=== PATIENT | male | born 1980 | race Caucasian/White ===

== ENCOUNTER 2021-02-10 15:08 | Emergency (ER) | payer SELFPAY ==
[2021-02-10 15:16] VITALS: BP 111/89; PULSE 89; RESP 18; TEMP 36.4; O2SAT 98; BMI 42.0
--- NOTE | 2021-02-10 15:37 | CM.ED ---
SOCIAL WORK Received call from Crisis prior to patient's arrival. Assessment completed by Crisis. Patient does not have insurance, Crisis to facilitate placement once medically cleared. Bre Mendiola, PHOTO LAB MANAGER, FINGERPRINT EXPERT
--- NOTE | 2021-02-10 16:01 | EDS_ITS ---
HPI HPI - Psych History of Present Illness Chief Complaint: Mental Health Informant: patient and mental health staff Onset/Context/Timing Onset: Weeks Narrative Narrative: Patient presents secondary to depression and suicidal ideation. He reports a history of depression that is recently been worsening. He has been seeing his counselor regularly. Patient states that the relationship he was in ended 2 weeks ago when he did not see that coming. He reports a 4-day period of not eating during that. He has a pet that was diagnosed with cancer this past summer who has been worsening for the past week. 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 Patient was already seen at counseling center and they do feel patient requires placement. Patient was sent here for medical clearance. He does report thoughts to harm himself but no specific plan or attempt. He denies desire to hurt anyone else. [facility] Medical History (Updated 02/10/21 @ 16:[address] Roopa Hernandez MD) Depression Seasonal allergies Home Medications fluticasone propionate 2 spray NASAL DAILY 12/07/16 [History Last Taken Unknown] montelukast 10 mg PO DAILY 12/07/16 [History Last Taken Unknown] duloxetine 30 mg PO DAILY 02/10/21 [History Last Taken Unknown] epinephrine 0.3 mg IM X1 PRN 02/10/21 [History Last Taken Unknown] hydroxyzine HCl 25 mg PO TID PRN 02/10/21 [History Last Taken Unknown] Allergy/AdvReac Type Severity Reaction Status Date / Time bee venom protein (honey bee) Allergy Anaphylaxis Verified 02/10/21 15:15 guaifenesin [From Robitussin] Allergy Other Verified 02/10/21 15:14 Surgical History (Updated 02/10/21 @ 16:22 by Tari Patel) H/O vasectomy Social History Smoking Status: Never smoker ROS ROS ED Constitutional Constitutional ED: Denies chills or fever(s) Eyes Eyes: Denies change in vision ENT ENT ED: Denies sore throat Cardiovascular Cardiovascular: Denies chest pain Respiratory/Chest Respiratory/Chest: Denies cough or dyspnea Gastrointestinal Gastrointestinal: Reports other Details: Decreased p.o. intake ; Denies a bdominal pain, diarrhea, nausea or vomiting Genitourinary Genitourinary ED: Denies dysuria Musculoskeletal Musculoskeletal: Denies back pain Integumentary Denies rash Neurologic Neurologic: Denies headache(s) or weakness Psychiatric Psychiatric: Reports anxiety, depression and suicidal thoughts Endocrine Endocrinology: Denies polydipsia or polyuria Allergic/Immunologic Allergic/Immunologic ED: Denies urticaria EXAM Physical Exam Const Vital Signs: 02/10/21 15:16 Temperature 97.5 F L Temperature Source Temporal Pulse Rate 89 Respiratory Rate 18 Blood Pressure 111/89 H Blood Pressure Mean 96 Pulse Ox 98 Oxygen Delivery Method Room Air Positive well nourished and well developed General Appearance ED: well developed HEENT Reports normocephalic and head/scalp atraumatic Eyes PERRL and EOMs intact bilaterally Neck supple Chest Wall inspection of chest normal and palpation of chest normal Resp normal respiratory effort and clear to auscultation bilaterally Cardio regular rate and regular rhythm GI normal to inspection, nondistended, normoactive bowel sounds, soft to palpation and non-tender Extremity normal to inspection Neuro oriented x3 and no sensory deficits noted Sensorium / Orientation: alert Motor Exam: strength 5/5 throughout Psych mental status grossly normal and cooperative Appearance: grossly normal and well kempt Attitude: calm Activity / Motor Behavior: avoids eye contact Speech: soft Mood & Affect: depressed Thought Content: suicidality Skin no rashes or lesions noted MDM MDM MDM Narrative Medical decision making narrative: [place] slip was signed. Screening labs for medical clearance is obtained. Lab Data Attestation: I reviewed the patient's lab results. Labs: Laboratory Results - last 24 hr 02/10/21 02/10/21 02/10/21 15:42 15:42 15:42 WBC 6.0 RBC 5.84 Hgb 15.9 Hct 48.9 MCV 83.7 MCH 27.2 MCHC 32.5 RDW Std Deviation 50.5 H RDW Coeff of Branden 16.9 H Plt Count 289 MPV 9.9 Immature Gran % (Auto) 0.300 Neut % (Auto) 56.2 Lymph % (Auto) 28.1 [place] % (Auto) 13.4 H Eos % (Auto) 1.3 Baso % (Auto) 0.7 Absolute Neuts (auto) 3.4 Absolute Lymphs (auto) 1.70 Nucleated RBC % 0 Sodium 139 Potassium 3.7 Chloride 106 Carbon Dioxide 25.0 Anion Gap 8 BUN 15 Creatinine 0.97 Estim Creat Clear Calc 108.90 Est GFR (MDRD) Af Amer 110 Est GFR (MDRD) Non-Af 91 BUN/Creatinine Ratio 15.4 Glucose 122 H Calcium 9.4 Ethyl Alcohol 8.0 Treatment and Re-Evaluation Comments:: Blood work is unremarkable at this time. We are still awaiting urine tox screen. Plan will be transfer to psychiatric facility for treatment. Discharge Plan Triage Chief Complaint: Mental Health ED Provider: Roopa Hernandez Dx/Rx/DC Orders Clinical Impression: Depression, Suicidal ideation Prescriptions: No Action montelukast 10 MG tablet 10 mg PO DAILY RF: 0 fluticasone propionate 1 SPRAY spray,suspension 2 spray NASAL DAILY RF: 0 duloxetine 30 mg capsule,delayed release(DR/EC) 30 mg PO DAILY RF: 0 hydroxyzine HCl 25 mg tablet 25 mg PO TID PRN (Reason: Anxiety) RF: 0 epinephrine 0.3 mg/0.3 mL auto-injector 0.3 mg IM X1 PRN (Reason: Allergic Reaction) RF: 0 Primary Care Provider: Pavan Rivera Referrals: Pavan Rivera MD [Primary Care Provider] - Disposition Disposition: Psychiatric Hospital or Unit
[2021-02-10 16:08] LABS: Absolute Neutrophil Count 3.4 X10^3/uL (2.0-7.7); Basophil# 0.04 X10^3/uL; Basophil% 0.7 % (0-1); Eosinophil# 0.08 X10^3/uL; Eosinophils% 1.3 % (0-5); Hematocrit 48.9 % (40-54); Hemoglobin 15.9 g/dL (13.0-16.5); Lymphocyte % 28.1 % (19-41); Mean Corp Hgb Conc 32.5 g/dL (32-36); Mean Corpuscular Hgb 27.2 pg (27.0-32.0); Mean Corpuscular Volume 83.7 fL (80-94); Mean Platelet Vol. 9.9 fl (6.2-12.0); Monocyte# 0.81 X10^3/uL; Monocyte% 13.4 % (0-10); NRBC Flagged by Analyzer 0 % (0-5); Neutrophil # 3.39 X10^3/uL (2.7-7.7); Neutrophil % 56.2 % (47-70); Platelet Count 289 K/mm3 (150-450); RBC Distribution Width CV 16.9 % (11.6-14.6); RBC Distribution Width SD 50.5 fl (35.1-43.9); Red Blood Count 5.84 M/mm3 (4.6-6.2)
[2021-02-10 16:22] LABS: Anion Gap 8 (5-15); BUN 15 mg/dL (7-18); BUN/Creat Ratio 15.4 RATIO (10-20); Calcium,Total 9.4 mg/dL (8.5-10.1); Chloride 106 mmol/L (98-107); Creatinine, Serum 0.97 mg/dL (0.70-1.30); EST Glomerular Filtration Rate 91 mL/min (>60); Est Glom Filt Rate - Afr Amer 110 mL/min (>60); Glucose 122 mg/dL (74-106); Potassium 3.7 mmol/L (3.5-5.1); Sodium Level 139 mmol/L (136-145)
[2021-02-10 17:02] LABS: Amphetamine Urine VISTA NEGATIVE (<1000 ng/mL); Barbiturate Urine VISTA NEGATIVE (< 200 ng/mL); Benzodiazepine Urine VISTA NEGATIVE (< 200 ng/mL); Cocaine Urine VISTA NEGATIVE (< 300 ng/mL); Ecstacy Urine VISTA NEGATIVE (< 500 ng/mL); Methadone Urine VISTA NEGATIVE (< 300 ng/mL); PCP Urine VISTA NEGATIVE (< 25 ng/mL); THC Urine VISTA NEGATIVE (< 50 ng/mL); Vista UDS pH Range 5
--- NOTE | 2021-02-10 17:12 | CM.ED ---
SOCIAL WORK Medical clearance faxed to Crisis to facilitate placement. Bre Mendiola, RESERVOIR CARETAKER, SHEET METAL ROOFER
[2021-02-10 19:00] VITALS: BP 121/79; PULSE 73; RESP 16; O2SAT 98
[2021-02-10] MEDS: Ondansetron ODT 4 MG Tablet PO (20:46)
== END 2021-02-10 21:45 ==
PROVIDERS: Emergency Medicine; Emergency Provider Emergency Medicine; PCP Family Medicine
DX: F32.9 Major depressive disorder, single episode, unspecified (principal); R45.851 Suicidal ideations; Z79.899 Other long term (current) drug therapy
CPT/HCPCS: 36415; 80048; 80307; 82077; 85025; 87426; 99285

== ENCOUNTER 2021-04-15 00:54 | Emergency (ER) | payer SELFPAY ==
[2021-04-15] VITALS (9 sets, daily range): BP systolic 107–148; BP diastolic 74–86; PULSE 72–103; RESP 14–18; TEMP 37.1; O2SAT 97–99; BMI 36.7
[2021-04-15 01:27] LABS: Absolute Lymphocyte Count 2.15 X10^3/uL (0.83-4.51); Absolute Neutrophil Count 12.6 X10^3/uL (2.0-7.7); Basophil# 0.04 X10^3/uL; Basophil% 0.3 % (0-1); Eosinophil# 0.01 X10^3/uL; Eosinophils% 0.1 % (0-5); Hematocrit 50.3 % (40-54); Hemoglobin 16.4 g/dL (13.0-16.5); Lymphocyte # 2.15 X10^3/ul (0.83-4.51); Lymphocyte % 13.6 % (19-41); Mean Corp Hgb Conc 32.6 g/dL (32-36); Mean Corpuscular Hgb 27.5 pg (27.0-32.0); Mean Corpuscular Volume 84.4 fL (80-94); Mean Platelet Vol. 9.4 fl (6.2-12.0); Monocyte# 0.97 X10^3/uL; Monocyte% 6.1 % (0-10); NRBC Flagged by Analyzer 0 % (0-5); Neutrophil # 12.59 X10^3/uL (2.7-7.7); Neutrophil % 79.5 % (47-70); Platelet Count 323 K/mm3 (150-450); RBC Distribution Width CV 18.2 % (11.6-14.6); RBC Distribution Width SD 53.1 fl (35.1-43.9); Red Blood Count 5.96 M/mm3 (4.6-6.2); White Blood Count 15.8 K/mm3 (4.4-11.0)
--- NOTE | 2021-04-15 01:35 | EX.ED.DYSGE1 ---
HPI <Dr. Kunal Frias MD - Last Filed: 04/15/21 22:22> History of Present Illness Chief Complaint: Suicidal Informant: patient Narrative Narrative: Patient presents with suicidal ideation. He was out in the amin with a gun thinking of shooting himself. He also had drank some alcohol. He states he was pink slipped back in January for worsening depression and grief. He did have some med changes. He has been doing following up counseling a couple times a week. However, he has not yet been able to get a psychiatrist visit. He has been trying but nobody has openings. He has been working to get into intensive outpatient psychiatry here. He has turned in some financial and other information but has not yet heard back. Patient had a break-up with a long-term relationship in January and he states that the biggest issue with grief and depression that is causing problems now. He also had an uncle recently. He was also just refused for Medicaid and he has no insurance. He states he keeps trying and trying but he can get better. He has also had a substantial weight loss. Some of this was from not eating for about 5 days after the break-up. The rest has been a conscious effort. He has been trying to eat healthy and he has been exercising by hiking every day. He has been doing everything he can to get better. Things just really caught up with him again today. [facility] <Dr. Kunal Frias MD - Last Filed: 04/15/21 22:22> [facility] Medical History Depression Seasonal allergies Home Medications fluticasone propionate 2 spray NASAL DAILY 12/07/16 [History Last Taken Unknown] montelukast 10 mg PO DAILY 12/07/16 [History Last Taken Unknown] duloxetine 60 mg PO DAILY 02/10/21 [History Last Taken Unknown] epinephrine 0.3 mg IM X1 PRN 02/10/21 [History Last Taken Unknown] hydroxyzine HCl 25 mg PO TID PRN 02/10/21 [History Last Taken Unknown] buspirone 5 mg PO BID 04/15/21 [History Last Taken Unknown] Allergy/AdvReac Type Severity Reaction Status Date / Time bee venom protein (honey bee) Allergy Anaphylaxis Verified 02/10/21 15:15 guaifenesin [From Robitussin] Allergy Other Verified 02/10/21 15:14 Surgical History H/O vasectomy Social History Smoking Status: Never smoker ROS <Dr. Kunal Frias MD - Last Filed: 04/15/21 22:22> ROS ED Constitutional Constitutional ED: Denies fever(s) Eyes Eyes: Denies blurry vision or change in vision ENT ENT ED: Denies rhinorrhea Cardiovascular Cardiovascular: Denies chest pain or palpitations Respiratory/Chest Respiratory/Chest: Denies cough or dyspnea Gastrointestinal Gastrointestinal: Denies abdominal pain, nausea or vomiting Genitourinary Genitourinary ED: Denies dysuria Musculoskeletal Musculoskeletal: Denies myalgias Integumentary Denies rash Neurologic Neurologic: Denies headache(s), paresthesias or weakness Psychiatric Psychiatric: Reports depression, suicidal ideation and suicidal thoughts Endocrine Endocrinology: Denies polydipsia or polyuria Allergic/Immunologic Allergic/Immunologic ED: Denies urticaria EXAM <Dr. Kunal Frias MD - Last Filed: 04/15/21 22:22> Physical Exam Const Vital Signs: 04/15/21 00:54 04/15/21 03:13 04/15/21 04:26 Temperature 98.7 F Temperature Source Temporal Pulse Rate 103 H 72 Respiratory Rate 18 16 16 Blood Pressure 137/81 H 107/78 Blood Pressure Mean 99 87 Pulse Ox 99 98 Oxygen Delivery Method Room Air Room Air 04/15/21 05:35 04/15/21 06:03 04/15/21 07:24 Temperature Temperature Source Pulse Rate 77 Respiratory Rate 14 16 18 Blood Pressure 123/74 H Blood Pressure Mean 90 Pulse Ox 98 Oxygen Delivery Method Room Air 04/15/21 08:44 04/15/21 11:19 04/15/21 12:19 Temperature Temperature Source Pulse Rate 81 87 Respiratory Rate 16 16 18 Blood Pressure 148/86 H Blood Pressure Mean 106 Pulse Ox 98 97 Oxygen Delivery Method Room Air Patient is cooperative. He is a bit tearful. Positive well nourished and well developed General Appearance ED: well developed HEENT Reports moist mucous membranes Eyes General Eye ED: Negative for pale conjunctiva or scleral icterus Neck no JVD Chest Wall inspection of chest normal Resp normal respiratory effort and clear to auscultation bilaterally Cardio regular rate and regular rhythm GI normal to inspection, nondistended, normoactive bowel sounds and non-tender Palpation: soft Back/Spine no CVA tenderness Extremity normal to inspection Neuro oriented x3 Sensorium / Orientation: alert Psych Attitude: No agitated Mood & Affect: depressed and tearful Skin no rashes or lesions noted <Joseph Chirinos MD - Last Filed: 04/15/21 10:30> Physical Exam Const Vital Signs: 04/15/21 00:54 04/15/21 03:13 04/15/21 04:26 Temperature 98.7 F Temperature Source Temporal Pulse Rate 103 H 72 Respiratory Rate 18 16 16 Blood Pressure 137/81 H 107/78 Blood Pressure Mean 99 87 Pulse Ox 99 98 Oxygen Delivery Method Room Air Room Air 04/15/21 05:35 04/15/21 06:03 04/15/21 07:24 Temperature Temperature Source Pulse Rate 77 Respiratory Rate 14 16 18 Blood Pressure 123/74 H Blood Pressure Mean 90 Pulse Ox 98 Oxygen Delivery Method Room Air 04/15/21 08:44 04/15/21 11:19 04/15/21 12:19 Temperature Temperature Source Pulse Rate 81 87 Respiratory Rate 16 16 18 Blood Pressure 148/86 H Blood Pressure Mean 106 Pulse Ox 98 97 Oxygen Delivery Method Room Air [facility] <Dr. Kunal Frias MD - Last Filed: 04/15/21 22:22> [facility] Lab Data Labs: Laboratory Results - last 24 hr 04/15/21 04/15/21 04/15/21 01:15 01:15 01:15 WBC 15.8 H RBC 5.96 Hgb 16.4 Hct 50.3 MCV 84.4 MCH 27.5 MCHC 32.6 RDW Std Deviation 53.1 H RDW Coeff of Branden 18.2 H Plt Count 323 MPV 9.4 Immature Gran % (Auto) 0.400 Neut % (Auto) 79.5 H Lymph % (Auto) 13.6 L [place] % (Auto) 6.1 Eos % (Auto) 0.1 Baso % (Auto) 0.3 Absolute Neuts (auto) 12.6 H Absolute Lymphs (auto) 2.15 Nucleated RBC % 0 Sodium 138 Potassium 3.8 Chloride 104 Carbon Dioxide 26.0 Anion Gap 8 BUN 8 Creatinine 0.94 Estim Creat Clear Calc 114.66 Est GFR (MDRD) Af Amer 114 Est GFR (MDRD) Non-Af 94 BUN/Creatinine Ratio 8.5 L Glucose 113 H Calcium 9.2 Urine Opiates Screen Urine Methadone Screen Ur Barbiturates Screen Ur Phencyclidine Scrn Ur Amphetamines Screen U Methamphetamin-MDMA U Benzodiazepines Scrn Urine Cocaine Screen U Cannabinoids Screen Ur Drug Screen Comment Ethyl Alcohol < 3.0 04/15/21 01:43 WBC RBC Hgb Hct MCV MCH MCHC RDW Std Deviation RDW Coeff of Branden Plt Count MPV Immature Gran % (Auto) Neut % (Auto) Lymph % (Auto) [place] % (Auto) Eos % (Auto) Baso % (Auto) Absolute Neuts (auto) Absolute Lymphs (auto) Nucleated RBC % Sodium Potassium Chloride Carbon Dioxide Anion Gap BUN Creatinine Estim Creat Clear Calc Est GFR (MDRD) Af Amer Est GFR (MDRD) Non-Af BUN/Creatinine Ratio Glucose Calcium Urine Opiates Screen NEGATIVE Urine Methadone Screen NEGATIVE Ur Barbiturates Screen NEGATIVE Ur Phencyclidine Scrn NEGATIVE Ur Amphetamines Screen NEGATIVE U Methamphetamin-MDMA NEGATIVE U Benzodiazepines Scrn NEGATIVE Urine Cocaine Screen NEGATIVE U Cannabinoids Screen NEGATIVE Ur Drug Screen Comment Ethyl Alcohol <Joseph Chirinos MD - Last Filed: 04/15/21 10:30> MDM MDM Narrative Medical decision making narrative: Patient endorsed to me by Dr. Kunal Frias to ensure transfer this patient to a psychiatric facility. I reviewed his medical screening labs and they are negative. I was informed by the RN, that he still had a headache and had received Tylenol. He will be given ibuprofen 400 mg orally here. Additionally, they state that he has been accepted at [facility]. He will be transferred in stable condition. Lab Data Attestation: I reviewed the patient's lab results. Labs: Laboratory Results - last 24 hr 04/15/21 04/15/21 04/15/21 01:15 01:15 01:15 WBC 15.8 H RBC 5.96 Hgb 16.4 Hct 50.3 MCV 84.4 MCH 27.5 MCHC 32.6 RDW Std Deviation 53.1 H RDW Coeff of Branden 18.2 H Plt Count 323 MPV 9.4 Immature Gran % (Auto) 0.400 Neut % (Auto) 79.5 H Lymph % (Auto) 13.6 L [place] % (Auto) 6.1 Eos % (Auto) 0.1 Baso % (Auto) 0.3 Absolute Neuts (auto) 12.6 H Absolute Lymphs (auto) 2.15 Nucleated RBC % 0 Sodium 138 Potassium 3.8 Chloride 104 Carbon Dioxide 26.0 Anion Gap 8 BUN 8 Creatinine 0.94 Estim Creat Clear Calc 114.66 Est GFR (MDRD) Af Amer 114 Est GFR (MDRD) Non-Af 94 BUN/Creatinine Ratio 8.5 L Glucose 113 H Calcium 9.2 Urine Opiates Screen Urine Methadone Screen Ur Barbiturates Screen Ur Phencyclidine Scrn Ur Amphetamines Screen U Methamphetamin-MDMA U Benzodiazepines Scrn Urine Cocaine Screen U Cannabinoids Screen Ur Drug Screen Comment Ethyl Alcohol < 3.0 04/15/21 01:43 WBC RBC Hgb Hct MCV MCH MCHC RDW Std Deviation RDW Coeff of Branden Plt Count MPV Immature Gran % (Auto) Neut % (Auto) Lymph % (Auto) [place] % (Auto) Eos % (Auto) Baso % (Auto) Absolute Neuts (auto) Absolute Lymphs (auto) Nucleated RBC % Sodium Potassium Chloride Carbon Dioxide Anion Gap BUN Creatinine Estim Creat Clear Calc Est GFR (MDRD) Af Amer Est GFR (MDRD) Non-Af BUN/Creatinine Ratio Glucose Calcium Urine Opiates Screen NEGATIVE Urine Methadone Screen NEGATIVE Ur Barbiturates Screen NEGATIVE Ur Phencyclidine Scrn NEGATIVE Ur Amphetamines Screen NEGATIVE U Methamphetamin-MDMA NEGATIVE U Benzodiazepines Scrn NEGATIVE Urine Cocaine Screen NEGATIVE U Cannabinoids Screen NEGATIVE Ur Drug Screen Comment Ethyl Alcohol Discharge Plan Triage Chief Complaint: Suicidal ED Provider: Joseph Chirinos Dx/Rx/DC Orders Clinical Impression: Suicidal ideation Prescriptions: No Action montelukast 10 MG tablet 10 mg PO DAILY RF: 0 fluticasone propionate 1 SPRAY spray,suspension 2 spray NASAL DAILY RF: 0 duloxetine 30 mg capsule,delayed release(DR/EC) 60 mg PO DAILY RF: 0 hydroxyzine HCl 25 mg tablet 25 mg PO TID PRN (Reason: Anxiety) RF: 0 epinephrine 0.3 mg/0.3 mL auto-injector 0.3 mg IM X1 PRN (Reason: Allergic Reaction) RF: 0 buspirone 5 mg Tablet 5 mg PO BID RF: 0 Primary Care Provider: Pavan Rivera Referrals: Pavan Rivera MD [Primary Care Provider] - Disposition Disposition: Psychiatric Hospital or Unit Discharge Location: [facility] Discharge Date/Time: 04/15/21 12:49
[2021-04-15 01:40] LABS: Alcohol, Blood (Medical)-Serum < 3.0 mg/dL
[2021-04-15 01:43] LABS: Anion Gap 8 (5-15); BUN 8 mg/dL (7-18); BUN/Creat Ratio 8.5 RATIO (10-20); Calcium,Total 9.2 mg/dL (8.5-10.1); Chloride 104 mmol/L (98-107); Creatinine, Serum 0.94 mg/dL (0.70-1.30); EST Glomerular Filtration Rate 94 mL/min (>60); Est Glom Filt Rate - Afr Amer 114 mL/min (>60); Estimated Creatinine Clearance 114.66 ml/min; Glucose 113 mg/dL (74-106); Potassium 3.8 mmol/L (3.5-5.1); Sodium Level 138 mmol/L (136-145)
[2021-04-15 02:16] LABS: Amphetamine Urine VISTA NEGATIVE (<1000 ng/mL); Barbiturate Urine VISTA NEGATIVE (< 200 ng/mL); Benzodiazepine Urine VISTA NEGATIVE (< 200 ng/mL); Cocaine Urine VISTA NEGATIVE (< 300 ng/mL); Ecstacy Urine VISTA NEGATIVE (< 500 ng/mL); Methadone Urine VISTA NEGATIVE (< 300 ng/mL); PCP Urine VISTA NEGATIVE (< 25 ng/mL); THC Urine VISTA NEGATIVE (< 50 ng/mL); Vista UDS pH Range 5
[2021-04-15] MEDS: Acetaminophen 500 MG Tablet 1000 MG PO (04:24)
--- NOTE | 2021-04-15 05:33 | ED.RN ---
CRISIS CALLED AND SAID THAT SINCE THE PATIENT HAS NO INSURANCE IT WOULD BE AWHILE TO GET PLACED.
[2021-04-15] MEDS: DULoxetine Hcl 60 MG Capsule PO (09:08)
[2021-04-15] MEDS: busPIRone 5 MG Tablet PO (09:08)
[2021-04-15] MEDS: Montelukast 10 MG Tablet PO (09:08)
--- NOTE | 2021-04-15 09:26 | NURSING ---
CALLED CRISIS. TALKED TO GARY AND MARCELLO. THEY ARE FAXING CHART TO [facility]. THE BUSINESS DEPT WILL HAVE TO APPROVE THE TRANSFER
--- NOTE | 2021-04-15 10:10 | CM.ED ---
Spoke to Elise with Crisis. Per Elise, referral has been faxed to [facility] for single case agreement as patient does not have insurance. Elise reports [facility] to review and get back regarding acceptance/denial. Bre Mendiola, BOOKBINDER CHIEF, DINKEY ENGINE OPERATOR
--- NOTE | 2021-04-15 10:23 | EKG12_ITS ---
Test Reason : MENTAL CLEARANCE Blood Pressure : / mmHG Vent. Rate : 083 BPM Atrial Rate : 083 BPM P-R Int : 138 ms QRS Dur : 092 ms QT Int : 372 ms P-R-T Axes : 023 -14 016 degrees QTc Int : 437 ms Normal sinus rhythm Normal ECG Confirmed by AJSON THOMAS, EMILY ([id number]), offline editor ERICK LIEBERMAN ([id number]) on 04/22/2021 8:59:28 AM Referred By: RYDER Confirmed By:EMILY GOMEZ MD
--- NOTE | 2021-04-15 10:23 | NURSING ---
NO OLD EKGS
--- NOTE | 2021-04-15 10:23 | NURSING ---
PATIENT ACCEPTED AT [facility]. CRISIS WILL HAVE TO CALL FOR A SQUAD
--- NOTE | 2021-04-15 10:25 | NURSING ---
GARY, CRISIS, CALLED. [facility] WILL BE 2 TO 3 HRS
[2021-04-15] MEDS: Ibuprofen 200 MG Tablet 400 MG PO (10:41)
--- NOTE | 2021-04-15 10:45 | CM.ED ---
Patient has been accepted to [facility] by Dr. Pena. Crisis to set up transport. [place] Slip added to chart. EKG faxed to [facility] per request. Bre Mendiola, COLLECT ON DELIVERY CLERK, PIG FURNACE OPERATOR
--- NOTE | 2021-04-15 12:42 | ED.RN ---
patients belongings including cell phone and public health program manager have been given to medics with [facility].
[2021-04-15] MEDS: Ondansetron ODT 4 MG Tablet PO (12:45)
== END 2021-04-15 12:49 ==
PROVIDERS: Emergency Medicine; Emergency Provider Emergency Medicine; PCP Family Medicine
DX: R45.851 Suicidal ideations (principal); R51.9 Headache, unspecified; F32.A Depression, unspecified; Z79.899 Other long term (current) drug therapy
CPT/HCPCS: 80048; 80307; 82077; 85025; 87426; 93005; 99285

== ENCOUNTER 2021-05-01 09:00 | Outpatient (RCR) | payer SELFPAY ==
--- NOTE | 2021-05-01 10:08 | BH.SGPN.GN ---
Behaviors/Verbalizations/Mental Status: Client alert and oriented, casually dressed and groomed. Eye contact good. Motor activity appropriate. Speech within normal limits, quiet. Affect constricted, mood depressed, anxious. Thoughts linear, logical, no signs of hallucinations or delusions.[] Client Response/Progress/Benefit: []Client first day in IOP tx. He did well to remain engaged during session AEB client taking notes and nodding during discussion and completing worksheet. Connected with discussion on crisis and how coping with external crises by using unhealthy coping skills could result in a personal crisis. Group reflected on the importance of having awareness of personal warning signs in order to prevent reaching crisis point. Group identified potential warning signs for crisis and client completed the personal warning signs worksheet. Client identified personal crisis warning signs to include: crying more or being more emotional, loss of appetite, and uncontrollable worries. Client benefited by increasing awareness of what leads to crisis and personal warning signs. Client will continue IOP to continue to increase insight into warning signs and triggers, develop healthy emotion regulation skills, as well as prevent decompensation. Narrative Note: []
--- NOTE | 2021-05-01 11:10 | BH.SGPN.GN ---
Behaviors/Verbalizations/Mental Status: []Client alert and oriented, casually dressed and groomed. Eye contact good. Motor activity appropriate. Speech within normal limits. Affect constricted, mood dysthymic. Thoughts linear, logical, no signs of hallucinations or delusions. Client Response/Progress/Benefit: []Client responded well to session as evidenced by client listening attentively to others and providing strategies during small group discussion. Client identified warning signs for crisis and gained further awareness of earliest warning signs. Client created a crisis action plan to help client better manage warning signs for crisis. Client?s action plan for crying more frequently and feeling more emotional included: opposite action through comedy, writing down what makes him happy, and avoiding what makes it worse. Client appeared to benefit from creating a crisis action plan and increasing self-awareness. Client?s first day of IOP tx. Client to continue IOP tx to prevent decompensation, maintain safety, and gain emotional regulation skills. Narrative Note: []
--- NOTE | 2021-05-01 13:58 | BH.COMM_ITS ---
Communication Note - Communication with Client Communication Note: Met with patient to complete initial paperwork. No sig nificant changes since pre-admission screening. Completed [place] Suicide Screening. Moderate risk. Last suicidal thought was 2 weeks ago at which time pt had an interrupted attempt. Reports at he had gone into the amin with a plan to complete suicide via firearm and had texted a picture of the gun to his ex. Pt's ex then contacted authorities and pt was escorted to the ER by police. Pt was hospitalized for one week for psychiatric stabilization. Denies any active SI, plan, or intent since. History of one previous hospitalization approximately 4 weeks earlier due to increased SI, without a specific plan or intent. Reports he no longer has access to any firearms or other lethal means. Reports ability to maintain safety and willing to review safety plan. Pt is future oriented and able to identify several motivations for living. Case discussed with Dr. French with plan to admit to IOP level of care with dx of MDD F33.2
--- NOTE | 2021-05-04 09:07 | BH.SGPN.GN ---
Behaviors/Verbalizations/Mental Status: []Client alert and oriented, casually dressed and groomed. Eye contact fair to good. Motor activity appropriate. Speech within normal limits, soft. Affect congruent, mood depressed and agitated. Thoughts linear, logical, no signs of hallucinations or delusions. Reviewed client?s symptom tracker, suicidal ideation reported as 1/5 which is within baseline, denies risk, plan, or intent as of 05/04/21 Client Response/Progress/Benefit: []Client responded well to session, attentive throughout and willing to process with group. Client reports feeling irritated? today as he had gone to visit a friend over the weekend and ended up having a disagreement with them. Shared it was ultimately a misunderstanding but that he is irritated he did not step back and listen to his friends concerns before getting defensive. Noted beliefs the conflict could have potentially been avoided. Went on to discuss believing this would have been an avoidable argument had be been more open to communicating. Shared feeling he has learned a little from group already and finds the treatment environment to be supportive. Appeared to benefit from group support and discussing skills client can use. Will continue IOP tx to continue to promote healthy coping skills, improve emotion regulation, and prevent decompensation. Narrative Note: []
--- NOTE | 2021-05-04 10:15 | BH.SGPN.GN ---
Behaviors/Verbalizations/Mental Status: []Client alert and oriented, neatly dressed and groomed. Eye contact fair. Motor activity appropriate. Speech within normal limits. Affect constricted, mood dysthymic. Thoughts linear, logical, no signs of hallucinations or delusions. Client Response/Progress/Benefit: []Client passive participate AEB no contributions during discussion, however appeared to listen attentively to peers. Listened to discussion of things that can keep people feeling trapped or stuck in life including: avoidance, decreased confidence, give up easily and not try. Group discussed the connection between thoughts, emotions, and behaviors as well as how negative thinking can keep a person stuck. Client attentive during psychoeducation on maintenance cycles. Client able to identify negative thoughts that have kept client stuck. Appeared to benefit from gaining awareness of how negative thoughts reinforce mental health symptoms and keep people stuck. Will continue IOP tx to continue challenging negative thoughts, use healthy coping skills and prevent decompensation.
--- NOTE | 2021-05-04 11:15 | BH.SGPN.GN ---
Behaviors/Verbalizations/Mental Status: []Client alert and oriented, neatly dressed and groomed. Eye contact good. Motor activity appropriate. Speech within normal limits. Affect flat, mood depressed. Thoughts linear, logical, no signs of hallucinations or delusions. Client Response/Progress/Benefit: []Client engaged during activity and discussion. Client worked in small group to apply skills learned to reframe own personal fixed thoughts. Appeared to benefit from suggestions provided by peers and from providing ideas to peers in return. Client identified several fixed thoughts including ?I?m going to remain in this anxious and stuck state? and ?I?m never going to meet anyone again as good as my ex-boyfriend.? Client practiced reframing these fixed thoughts using growth-mindset strategies. Reframed one of his thoughts and shared ?if I focus on rebuilding myself, I can find a better partner.? Benefitted from discussing benefits of growth mindset and brainstorming strategies for prompting growth-mindset. Will continue IOP tx to prevent decompensation, improve overall functioning, and maintain safety. Narrative Note: []
--- NOTE | 2021-05-06 10:23 | BH.MDN ---
Multi-Disciplinary Note - Note 60-min Individual Time Started:: 09:10 Date: 05/06/21 Purpose of session/treatment goals addressed:: Reviewed progress and current symptoms. Treatment Planning. Eye Contact:: Good Motor Activity:: Appropriate Appearance:: Casual Speech:: Appropriate Mood:: Depressed Affect:: Flat Thoughts:: Linear, Logical, No evidence of hallucinations/delusions noted Staff Interventions:: psychoeducation on: - mistaken beliefs, CBT techniques, rapport building, treatment planning Client Response:: Pt reports that last he has been depressed since last night which led to feeling like he is regressing. This led to thoughts that he will end up back in the hospital and will always be depressed. Processed events and thoughts from yesterday and this AM. Had some obstacles over the night which included having yoga cancelled and ending a relationship with someone he has been communicating with via a dating amita. Reports that he is very lonely and while he has insight that entering a relationship is not ideal at this time he reached out to have someone to talk with and decrease loneliness. Yesterday this person essentially ended the communication with patient reporting that he was already in a relationship. This brought back emotions and triggered him to ruminate of his previous relationship which ended in January and is primarily reason for his depression and SI. 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 Feels lack of control in his life. Responded well to some thought reframing. 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 Risks/Concerns:: Pt has reported frequent suicidal thoughts since his relationship ended in January. These thoughts have led to plan and intent which led to psychiatric admission several weeks ago. He reports decreased frequency, intensity, and duration of these thoughts since discharge from psychiatric unit. He admits to passive thoughts of last night while alone and presented with emotional trigger however was able to utilize some calming and coping skills. Denies active suicidal ideations, plan, or intent. Future-oriented regarding IOP and his business. Does not present as imminent danger to self due to no active SI, plan, or intent. Future-oriented. Reports able to maintain safety. Progress Toward Goals/Plan:: Pt reported progress since discharge and starting IOP. He reported on 12/13/21 improved mood and benefit from support and education in groups. Regression last evening in response to a trigger. Able to process thoughts last night and identify strategies that he could use for future depressive episodes. His primary coping skill is distraction and would benefit from learning more internal skills. Primarily struggles when alone with my thoughts so we have identified this as important area to address. Medication compliant. Consistent with attendance and appears motivated to improve overall mental wellness. Admits that he is struggling to move on from his previous relationship often stating that he was the love of my life. Will continue in IOP to maintain safety, increase healthy coping, and prevent decompensation. He was given some educational material on Mistake Beliefs and plan is to move forward with thought tracking. Time Stopped:: 10:10
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
[2021-05-06 11:53] VITALS: BP 152/98; PULSE 73
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
--- NOTE | 2021-05-06 12:31 | BH.DR.ITP ---
Initial Treatment Plan Patient Information Visit Information: ADMISSION DATE: EXPECTED LOS: 4-6 weeks Problems/Symptoms Problem #1:: Depression Symptom:: Sadness, biological disruption of appetite, recent history of suicidal ideation, fatigue, low energy, anhedonia Problem #2:: Anxiety Symptom:: Worry, rumination, flashbacks, reexperiencing, avoidance
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
--- NOTE | 2021-05-06 14:22 | BH.MTP ---
Master Treatment Plan - Patient Information Program Physician:: Lore French Primary Therapist:: Patricio Garces - Psychiatric Diagnoses Psychiatric Diagnoses:: 1. Major depressive disorder, recurrent, severe without psychosis. 2. Generalized anxiety disorder Diagnosis Code(s):: F33.2, F41.1 - Estimated LOS Estimated LOS (in weeks):: 8 Problem/Goal #1 - Problem/Goal #1 Stated Goal:: Client will reduce depressive symptoms, worthlessness, lack of concentration, suicidal ideations, and negative core beliefs associated with major depressive disorder AEB self-report and decrease in depression domain on DSM5 outcomes Description of Barriers: Grief, recent break-up, co-dependency issues, financial stressors, career stressors, Functional Impact: Depression and SI have led to two psychiatric admissions since January 2021 - Objectives Objective #1 Stated Objective: Create a safety plan for suicidal ideations. Interventions: Through individual and group counseling with work with pt to develop a plan, identifying what he/she will and won?t do when experiencing suicidal thoughts or impulses; encourage the client to be open and honest regarding suicidal urges, Discharge Criteria: Will have completed safety plan Target Date: 06/12/21 Review Date: 06/03/21 Objective #2 Stated Objective: Client will identify and replace 2-3 negative thinking patterns that reinforce depressive symptoms, self-hate, and negative self-talk. Interventions: Through individual and group counseling will help client identify distorted, negative beliefs about self and replace with more realistic, affirmative messages. Therapist will use CBT to help client increase insight to the connection between thoughts, emotions, and behaviors. Therapist will encourage client to practice thought challenging. Discharge Criteria: Will be able to identify 2-3 negative thinking patterns and cognitive distortions that impacts thoughts, emotions, and behaviors and be able ti implement strategies to decrease their impact on mental health. Target Date: 06/12/21 Review Date: 06/03/21 Problem/Goal #2 - Problem/Goal #2 Stated Goal:: Client will reduce overall frequency, intensity, and duration of anxiety to improve functioning AEB reduction in scorce on the Anxiety domain of the DSM-5 cross-cutting outcome scales. Description of Barriers: Grief, recent break-up, co-dependency issues, financial stressors, career stressors, Functional Impact: Anxiety about the future or his business, career, and finances have impacted daily functioning (less hours at work, isolation) - Objectives Objective #1 Stated Objective: Client will identify 2-3 anxiety triggers and 2 calming coping skills to reduce anxiety as shown by decreased DSM-5 cross cutting symptom measure scores. Interventions: Through individual and group counseling will help client increase awareness of anxiety triggers and educate client on the ways anxiety impacts overall health. Therapist will teach client various calming and mindfulness strategies to promote emotional regulation and reduction of anxiety. Therapist will encourage client to implement healthy coping skills on a regular basis. Discharge Criteria: Identify anxiety triggers and utilize skills on a consistent basis. Target Date: 06/12/21 Review Date: 06/03/21
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
--- NOTE | 2021-05-08 10:10 | BH.SGPN.GN ---
Behaviors/Verbalizations/Mental Status: []Eye contact is good. Motor activity is appropriate. Appearance is casual. Speech is Appropriate. Mood is dysthymic. Affect is constricted. Thoughts are linear and logical. No evidence of psychosis. Client Response/Progress/Benefit: []Pt was a passive participant in group discussion. Pt was taking notes and providing input when elicited by therapist. Attentive during psychoeducation reviewing internal and external obstacles and provided examples throughout. Participated in the reflection activity in which clients tucker pictures depicting their current and desired reality and shared with the group. Pt stated feels like he is stuck on an island with all his triggers with no way of leaving. Stated makes him feel pessimistic and hopeless. Reported desired reality is to be able to manage triggers better, increase socialization, and feel like himself again. Benefited from group by increasing current awareness and expectations for progress. Pt to continue IOP to improve emotion regulation, increase confidence and prevent decompensation.
--- NOTE | 2021-05-08 11:10 | BH.SGPN.GN ---
Behaviors/Verbalizations/Mental Status: [] Client alert and oriented, casually dressed and groomed. Eye contact good. Motor activity appropriate. Speech within normal limits. Affect constricted, mood anxious and depressed. Thoughts linear, logical, no signs of hallucinations or delusions. Client Response/Progress/Benefit: [] Client mostly engaged during activity, though often remains passive throughout group discussion. Attentive as group came up with ideas on how to cope with internal barriers that keep clients stuck from moving towards goals. Client able to identify personal barriers to their desired reality, which included: isolating, fear of failure, self-doubt, and negative self-talk. Client wants to work on reducing self-doubt by reminding himself to be kind/patient with himself, as well as highlighting small wins. Reports this will aid in further improving ability to love himself as well. Benefited from group by identifying personal obstacles and potential solutions to desired reality. Client will continue IOP tx to reduce depressive symptoms, improve overall functioning, and decrease negative thinking. Narrative Note: []
--- NOTE | 2021-05-11 09:05 | BH.SGPN.GN ---
Behaviors/Verbalizations/Mental Status: [] Eye contact is good. Motor activity is appropriate. Appearance is casual. Speech is Appropriate. Mood is depressed. Affect is flat. Thoughts are linear and logical. No evidence of psychosis. Reviewed daily check in sheet and pt reports 1/5 for suicidal thoughts and 0/5 for intent. Client Response/Progress/Benefit: [] Pt participated when prompted. Attentive. Mental health win was visiting with support over the weekend. Also reports that he went on a 3 mile walk with a friend. I'm trying to get into a healthy routine. He talked at length regarding the struggles with anxiety and crying spells that he had driving to and from support this weekend. Worried that he will drive past his ex which will result in an emotional crisis. He utilized several coping skills during his drive and was able to make it however states he almost turned around several times. He asked for and received feedback from peers on how to manage panic and anxiety. Minimal progress noted per pt report. Difficulty seeing progress as he believes that these crying spells and panic are failures. Group helped him reframe which was beneficial. Will continue in IOP to maintain safety, prevent decompensation, and improve functioning. Narrative Note: []
--- NOTE | 2021-05-11 10:10 | BH.SGPN.GN ---
Behaviors/Verbalizations/Mental Status: []Client alert and oriented, casually dressed and groomed. Eye contact fair. Motor activity appropriate. Speech within normal limits. Affect constricted, mood dysthymic. Thoughts linear, logical, no signs of hallucinations or delusions. Client Response/Progress/Benefit: []Client was an engaged participant AEB contributing to discussion and staying engaged with group activity. Connected with the topic of pitfalls and helped the group discuss barriers that keep them from choosing a healthier path to mental wellness such as pitfalls. Group worked together to identify examples of personal pitfalls which included: lashing out, jumping to conclusions, social media, isolation and addictive behaviors. Client shared personal pitfalls as: no patience, unrealistic expectations, personalizing, and comparing self to former self. Engaged during the activity by offering group members encouragement and problem solving techniques. Client benefited from group as learned personal barriers from improving mental health. Client will continue IOP to increase the use of healthy coping skills, improve confidence, and prevent decompensation.
--- NOTE | 2021-05-11 11:10 | BH.SGPN.GN ---
Behaviors/Verbalizations/Mental Status: []Client alert and oriented, neatly dressed and groomed. Eye contact fair. Motor activity appropriate. Speech within normal limits. Affect flat, mood depressed. Thoughts linear, logical, no signs of hallucinations or delusions. Client Response/Progress/Benefit: []Client engaged throughout AEB client actively listening, taking notes, and at times contributing to discussion. Client completed worksheet identifying personal pitfalls impacting mental health progress. Client identified the following pitfalls: lack of patience, unrealistic expectations, personalizing, and comparing himself to ?my former self.? Group brainstormed different coping skills to help manage pitfalls. Client selected personalizing as the pitfall client would like to overcome. Client plans to work on this by using positive self-talk and challenging distorted thought patterns. Benefited from identifying personal pitfalls and strategies to overcome these pitfalls. Will continue IOP tx to reduce ruminations, improve daily functioning, and increase mood stability. Narrative Note: []
--- NOTE | 2021-05-11 13:50 | BH.MDN ---
Multi-Disciplinary Note - Note 60-min Individual Time Started:: 12:00 Date: 05/11/21 Purpose of session/treatment goals addressed:: Reviewed current symptoms and progress in IOP. Reviewed homework. Eye Contact:: Good Motor Activity:: Appropriate Appearance:: Casual Speech:: Soft Mood:: Depressed Affect:: Flat Thoughts:: Linear, Logical, No evidence of hallucinations/delusions noted Staff Interventions:: thought challenging, psychoeducation on: - mistaken beliefs, strengths perspective, completed risk assessment / safety planning - reviewed safety plan for his recent psych admission. Client Response:: Pt reports that he had some downs over the weekend. Reports that he utilized sleep as an unhealthy coping skill on Tuesday going to be at 730pm to escape. Tuesday he was depressed and had crying spells with thoughts like I don't want to be sick.. Why did I lose Behzad. Tuesday he drove to meet with his parents which was not the best visit as he was disengaged. He read the handout from last week on cognitive distortions and he identified that he utilized personalization and shoulds most often. Also able to identify absolute thinking. Despite his perspective that he was significantly depressed he did manage to overcome anxiety, panic attacks, and continues to utilize hiking as a healthy skill. Went hiking with a friend. He reports that he was anxious driving to parents however utilized skills and worked through emotions to complete task rather than avoid. He is also beginning to challenge and reframe some thoughts from skills learned. We reviewed his mistaken beliefs questionnaire which he reports was insightful and shed light on why this break-up is challenging. Risks/Concerns:: Pt reported a 1/5 for suicidal ideations and 0/5 for intent on his daily tracker. He denies active SI, plan, or intent. We reviewed his safety plan from psych inpatient and he reports being future-oriented and looking forward to this afternoon as he has plans with a friend. Does not present as imminent danger to self due to no active SI, plan, or intent. Contracts for safety. Progress Toward Goals/Plan:: Progress noted. Consistently attending IOP. Engaged and attentive in the program. Takes notes and discusses groups in individual sessions. Utilizing skills at times. Primary obstacle is rumination and grief associated with break-up. When alone he struggles to combat negative thoughts. This is improving with education on connection with thoughts, emotions, and behaviors as well as cognitive distortions. Was given homework to track thoughts and identify when he has cognitive distortions. 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 We briefly discussed options. As this is a significant stressors and time sensitive we agreed to focus on decision-making skills in the next week. He was given task to write down all his current career options. Plan is to continue in IOP to maintain safety, increase healthy coping, and stabilize mood. Time Stopped:: 01:00
--- NOTE | 2021-05-13 09:00 | BH.SGPN.GN ---
Behaviors/Verbalizations/Mental Status: [] Eye contact is good. Motor activity is appropriate. Appearance is casual. Speech is Appropriate. Mood is anxious. Affect is congruent. Thoughts are linear and logical. No evidence of psychosis. Reviewed daily check in sheet and denies any suicidal thoughts or intent. Client Response/Progress/Benefit: [] Pt participated when prompted. Attentive. Daily symptom tracker notes 5 for depression and 2/5 for anxiety. 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 Business has been a significant stressor so this was very beneficial for him. Pt states Yesterday was the close to feeling normal again. Reports that he wakes up anxious and is attempting to reframe thoughts and utilize mindfulness and breathing to lower anxiety which has helped him start his day in better spirits. Progress noted. Benefited from group support, encouragement, and feedback. Will continue in IOP to maintain safety, prevent decompensation, and increase healthy coping. Narrative Note: []
--- NOTE | 2021-05-13 10:07 | BH.SGPN.GN ---
Behaviors/Verbalizations/Mental Status: []Eye contact is good. Motor activity is appropriate. Appearance is casual. Speech is Appropriate, limited input provided. Mood is anxious and depressed. Affect is congruent. Thoughts are linear and logical. No evidence of psychosis. Client Response/Progress/Benefit: []Pt was an active participant in group discussion and activity AEB taking notes and providing some input throughout. On occasion did struggle with becoming distracted by own thoughts. Did well to remain attentive during psychoeducation on factors that build resiliency and providing input throughout. Worked with peers to define resilience and shared thoughts that resilience is something that can continue to be developed throughout life. Pt engaged in discussion on benefits of resilience in promoting mental wellness. These included: improve self-confidence, feel more hopeful about the future, improve relationships, and better manage stress. Benefited from group by increasing awareness of mental health benefits of resilience. Additionally, connected with discussion introducing 10 factors that can help build personal resiliency. Pt identified currently practicing resiliency factor of ?make connections? and ?taking care of yourself?, sharing this has been an ongoing struggle but important to preventing decompensation. Will continue in IOP to continue to improve depression management and mood stability, promote healthy coping skill application, and prevent decompensation. Narrative Note: []
--- NOTE | 2021-05-13 11:15 | BH.SGPN.GN ---
Behaviors/Verbalizations/Mental Status: []Client alert and oriented, neatly dressed and groomed. Eye contact good. Motor activity appropriate. Speech within normal limits. Affect flat, mood euthymic. Thoughts linear, logical, no signs of hallucinations or delusions Client Response/Progress/Benefit: []Client responded well to session AEB contributing to discussion and completing the resilience worksheet provided. Client participated in the discussion of how each resiliency component can help increase personal resiliency and worked cooperatively with group to identify strategies to enhance each of the components discussed. Client identifying doing well with the resilience components of making connections and taking care of himself. Went on to reflect wanting to improve in the personal resilience component of ?accepting that change is a part of living?. Client stated he wants to work on this by using positive self-talk and reminding himself of previous changes. Client seemed to benefit from discussing strategies for improving personal resilience. Will continue IOP tx to prevent decompensation, improve emotional regulation skills, and increase application of healthy coping skills. Narrative Note: []
--- NOTE | 2021-05-13 11:58 | PCM.BH.PN ---
Progress Note Progress Note: History of Present Illness/Interim History: [] The patient is a 41-year-old single male who is seen in follow-up at the [facility] IOP program. I last saw the patient 1 week ago and at that time the patient was requesting to wean off of his Abilify due to weight gain. Prescription was sent in for Latuda 40 mg p.o. daily to be taken with food and he was to then to decrease his Abilify dose to 10 mg daily when he started the Latuda. However the patient has not made any of these changes because the pharmacy did not have the Latuda supply. He states that he was notified today that the Latuda is at the pharmacy now. He states he has been doing okay for the past week. He is still somewhat depressed and down. He is trying to watch his weight and eat healthfully. He denies any passive thoughts of , suicidal ideation, plan for suicide, homicidal ideation, hallucinations, delusions. He has not had any panic attacks. He is looking forward to making this medication change in order to stop his weight gain. Current Psychiatric Medications: [] Abilify 15 mg p.o. twice a day; vitamin D; Cymbalta 60 mg p.o. daily; BuSpar 5 mg 3 times daily; hydroxyzine 25 mg p.o. at bedtime Mental Status Examination: [] Patient is a 41-year-old male who appears normal for stated age and is casually dressed and groomed with good hygiene. He is seen wearing a mask due to the pandemic. He has no psychomotor agitation or retardation. Eye contact is good and speech is normal rate and rhythm and fluent with no pressure. Mood is depressed. Affect is constricted. Thought process is goal-directed and organized. Thought content: There is no evidence of passive thoughts of , suicidal ideation, homicidal ideation, hallucinations or delusions. Reality testing is intact. Judgment is intact. Insight is limited. Impulsivity is moderate. Diagnoses: [] 1. Major depressive disorder, recurrent, severe without psychosis 2. Generalized anxiety disorder 3. Primary support, work issues 4. Nicotine use disorder Plan: [] The patient will continue the IOP program in behavioral health at [facility] as the structure, support, education and group therapy will hopefully prevent worsening of the patient's symptoms. He felt safe during the interview and if it anytime he does not feel safe he will let us know or go to the emergency room. The risk, options, possible complications and side effects of the medications were discussed with the patient and he understands and accepts these. 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 with food at dinner in the evening. He will then decrease his Abilify to 10 mg p.o. nightly. His other medication doses will remain the same. I will see the patient in 2 weeks in follow-up and he will continue to follow-up with his outpatient medical and psychiatric providers. If the patient has any trouble with these medication changes he will call and or tell us at the IOP program immediately.
--- NOTE | 2021-05-14 09:05 | BH.SGPN.GN ---
Behaviors/Verbalizations/Mental Status: []Eye contact is good. Motor activity is appropriate. Appearance is casual. Speech is Appropriate. Mood is depressed and anxious. Affect is congruent. Thoughts are linear and logical. No evidence of psychosis. Reviewed daily check in sheet and reports of suicidal ideation as 1/ which is consistent with baseline. Denies plan or intent. Client Response/Progress/Benefit: []Pt responded well to session AEB pt listening attentively to peers and sharing thoughts with group. Pt reported he has been struggling this week as the holidays are always hard and this is his first holiday since his recent break-up. Shared struggling to adjust to the ?new normal? and still feeling resentful and angry that he has to. Receptive of supportive feedback and suggestions of healthy coping and self-care skills provided by the group. 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 Seemed to benefit from support and feedback from peers. Pt to continue IOP to continue practicing challenging distorted thinking patterns, improve mood stability, and prevent decompensation. Narrative Note: []
--- NOTE | 2021-05-14 10:10 | BH.SGPN.GN ---
Behaviors/Verbalizations/Mental Status: [] Eye contact is good. Motor activity is appropriate. Appearance is causal. Speech is Appropriate. Mood is depressed. Affect is flat. Thoughts are linear and logical. No evidence of psychosis. Client Response/Progress/Benefit: [] Pt had limited participation in group discussion however was an active participant in experiential activity. Attentive during psychoeducation. Group had an interactive discussion on the benefits of emotional regulation in which pt was attentive and took notes. Group identified several benefits to emotional regulation which included; less consequences, more stable relationships, improved communication, increased stability, decreased depression/anxiety, less impulsivity, decreased stress, and improved physical health. Group also was able to identify how emotions can impact our communication leading to; difficulty articulating our thoughts, saying things that one doesn't really mean, shutting down, confusion, and rambling. Pt participated in experiential activity which limited his ability to communicate with peers and shared how this impacted him. Benefited from increased awareness into how emotions can impact one's ability to effectively communicate. Will continue in IOP to maintain safety, prevent decompensation, and improve functioning. Narrative Note: []
--- NOTE | 2021-05-14 11:12 | BH.SGPN.GN ---
Behaviors/Verbalizations/Mental Status: []Client alert and oriented, neatly dressed and groomed. Eye contact fair. Motor activity appropriate. Speech within normal limits. Affect constricted, mood depressed. Thoughts linear, logical, no signs of hallucinations or delusions. Client Response/Progress/Benefit: []Client engaged in session AEB client listening attentively to peers and providing input. Attentive during psychoeducation on 4 zones of regulation. Client able to identify feelings and behaviors for each zone. Client identified coping skills one can use to support self in each zone. Client stated belief that he is most often in the blue zone because more down and depressed. Pt stated he wants to work on creating a daily routine and using opposite action to help him get out of the blue zone when needed. Benefited from increased education on zones of regulation or stages of alertness for emotions and healthy coping skills to use for each zone. Will continue IOP tx to continue use of healthy coping, improve confidence and prevent decompensation.
--- NOTE | 2021-05-14 14:02 | BH.MDN_ITS ---
Multi-Disciplinary Note - Note 45-min Individual Time Started:: 12:00 Date: 05/14/21 Purpose of session/treatment goals addressed:: Reviewed progress and current symptoms. Began to work on worksheet for decision on business which is significant stressor. Eye Contact:: Good Motor Activity:: Appropriate Appearance:: Casual Speech:: Appropriate Mood:: Depressed Affect:: Flat Thoughts:: Linear, Logical, No evidence of hallucinations/delusions noted Staff Interventions:: psychoeducation on: - decision-making, other - reviewed safety plan, developed strategies to manage emotions over the holiday weekend. 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 We agreed to work on this more in session as this is significant stressor and the deadline for the move is in less eason 4 weeks. He discussed the pro's and con's and he talked at length. The cons seem to be tied to his ego, memories with the location/shop, and feeling like a failure if he merges. He was able to bring up some very solid benefits to merging which would benefit him emotionally, socially, and financially as he current works alone and is burned out (needs some help). Able to reframe that the merger would also help him learn from someone else in the field and he would always have to option to leave if needed. Appears more confident in this decision to merge however a great deal of this relies on whether the other person will agree. He also brought up the upcoming holidays being single. He does have plans for xmas day however not for xmas ariana. He is reaching out and hopes to have something however he was open to the idea of creating a new tradition for himself on xmas ariana. We discussed some possible options. Risks/Concerns:: Pt denies any suicidal ideations, plan, or intent. Daily symptom tracker today also notes no suicidal thoughts. No access to gun (police took them away prior to psych admit). We talked about upcoming holiday and depression associated with it. He is future-oriented regarding his business and contract for safety. Does not present as imminent danger to self and there is no symptoms noted which would require involuntary admission. He has reported improvement in the past 2 days. Progress Toward Goals/Plan:: Progress noted in the past few days. Consistent and engaged in IOP. Reports benefits. Yesterday he reported feeling normal. Admits to holiday depression as this is the first xmas he has been single. Continues to grieve relationship however reports utilizing skills and reframing thoughts. He is able to identify cognitive distortions and challenge these thoughts. Tearful at times when discussion past holidays. He is open to staying in the present, creating new holiday traditions, and utilizing skills to minimize impact of depression over the holiday. Also is beginning to take action and make decisions regarding his career and business which is benefiting his mental health and decreasing uncertainty. Plan is to continue in IOP to maintain safety, stabilize mood, and increase healthy coping. Time Stopped:: 01:15
--- NOTE | 2021-05-18 09:05 | BH.SGPN.GN ---
Behaviors/Verbalizations/Mental Status: []Client alert and oriented, neatly dressed and groomed. Eye contact fair. Motor activity appropriate. Speech within normal limits. Affect flat, mood dysthymic and anxious. Thoughts linear, logical, no signs of hallucinations or delusions. Reviewed client?s symptom tracker, no risk for suicidal ideation, plan, or intent as of 05/18/21 Client Response/Progress/Benefit: C[]Client responded well to session, attentive and contributing. 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 Client shared the holiday was hard for him and his goal was to just make it through [place] and ariana. Client shared he tried to use opposite action, but it was not effective as client took naps to get through the days. Client did have some mental health wins, sharing he went on a hike with a friend, he used deep breathing, and he set boundaries with his mother. Appeared to benefit from reflecting on application of coping skills. Progress noted in client's reduced suicidal ideations and increased physical activity. Will continue IOP tx to reduce depressive symptoms, improve daily functioning, and reduce ruminations. Narrative Note: []
--- NOTE | 2021-05-18 10:16 | BH.SGPN.GN ---
Behaviors/Verbalizations/Mental Status: []Eye contact is good. Motor activity is appropriate. Appearance is casual and grooming tended to. Speech is Appropriate, limited input provided. Mood is anxious and depressed. Affect is constricted. Thoughts are linear and logical. No evidence of psychosis Client Response/Progress/Benefit: []Pt was a mostly engaged, though passive participant in group discussion, providing limited input but was attentive and taking notes during psychoeducation. Pt participated in short activity about automatic thoughts and connected with discussion on how experiences, values, and mood can impact automatic thoughts. Group was primarily educational; therapist introduced and gave examples of the most common cognitive distortions. Pt benefited from education and increased awareness of cognitive distortions and the role that they play on our behaviors and emotions. Pt reported connecting with many distortions reviewed AEB nodding throughout. Shared distortions he currently struggles with as ?mental filter?, ?personalization?, ?labelling?, ?overgeneralization?, ?disqualifying the positives?, and ?should/must statements?. Will continue IOP tx to continue to promote healthy coping behaviors and improve mood stability, continue to encourage thought challenging, as well as prevent decompensation. Narrative Note: []
--- NOTE | 2021-05-18 11:20 | BH.SGPN.GN ---
Behaviors/Verbalizations/Mental Status: [] Eye contact is good. Motor activity is appropriate. Appearance is casual. Speech is Appropriate. Mood is depressed. Affect is flat. Thoughts are linear and logical. No evidence of psychosis. Client Response/Progress/Benefit: [] Attentive during psychoeducation on cognitive distortions not discussed in previous group. Pt was an actively engaged participant in Cognitive Distortions Jeopardy, providing input and suggestions to small group. Utilized notes from psychoeducation on cognitive distortions to assist peers in correctly answering questions. Experiential activity was beneficial as it provided a way for patient to review notes and handouts during psychoeducation to answer questions for the game. Will continue in IOP to maintain safety, prevent decompensation, and improve daily functioning. Narrative Note: []
--- NOTE | 2021-05-20 10:00 | BH.COMM ---
Communication Note - Communication with Client Communication Note: Discussed with client inability to fill Latuda prescription due to cost. Client states he saw his outpatient psychiatrist today for a first visit and prescriptions were changed. Client is starting on Lamictal, decreased Abilify to 10mg BID (from 15mg BID), and increasing Buspar to 7.5mg three times daily.
--- NOTE | 2021-05-20 10:10 | BH.SGPN.GN ---
Behaviors/Verbalizations/Mental Status: [] Eye contact is good. Motor activity is appropriate. Appearance is casual. Speech is Appropriate. Mood is depressed. Affect is flat. Thoughts are linear and logical. No evidence of psychosis. Client Response/Progress/Benefit: [] Pt was attentive AEB by note-taking during psychoeducation and interaction discussion on the definition of anxiety, what distinguishes normal anxiety vs anxiety disorder, and the benefits of anxiety. Attentive during discussion on the physiological symptoms, fearful thoughts, and safety behaviors related to anxiety. Pt was able to identify the 3 most significant physiological symptoms of anxiety that he experiences which included; increased heart rate and feet feeling cold. Benefited from psychoeducation on anxiety as well as personal physiological signs of anxiety. Will continue in IOP to prevent decompensation, increase healthy coping, and maintain safety. Narrative Note: []
--- NOTE | 2021-05-21 09:05 | BH.SGPN.GN ---
Behaviors/Verbalizations/Mental Status: [] Eye contact is good. Motor activity is appropriate. Appearance is casual. Speech is Appropriate. Mood is anxious. Affect is congruent. Thoughts are linear and logical. No evidence of psychosis. Reviewed daily check in sheet and no reports of suicidal ideations or intent. Client Response/Progress/Benefit: [] Pt participated at times during the group discussions. Attentive. Mental health wins were I actually stayed up later and got things accomplished yesterday. For past several months he has been going to sleep earlier than he would like due to fatigue. Yesterday he accomplished several tasks and felt motivated. He is taking steps to decrease triggers to his past relationship such as remodeling and repainting areas of the house. 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 He is anxious about the upcoming holiday stating my social calender is less filled. Concern that he will ruminate over past relationship during the long holiday weekend. Group provided feedback and suggestions as well as support and encouragement which was beneficial. Progress noted. Will continue in IOP to maintain safety, increase healthy coping, and improve functioning. Narrative Note: []
--- NOTE | 2021-05-21 10:10 | BH.SGPN.GN ---
Behaviors/Verbalizations/Mental Status: []Client alert and oriented, neatly dressed and groomed. Eye contact good. Motor activity appropriate. Speech within normal limits. Affect constricted, mood dysthymic. Thoughts linear, logical, no signs of hallucinations or delusions. Client Response/Progress/Benefit: [] Pt was an active participant in group discussion and activity. Attentive during psychoeducation on what it means to take action. Group discussed barriers to taking action as well as what it takes to finally overcome the fear associated with change. Pt identified symptoms pt want to take gain control over which included being single and not enjoying it, self-rumination, and not recognizing own self-worth.? Increased insight into what could be holding pt back from mental wellness and the importance of taking action on symptoms and obstacles rather than avoiding or ignoring. Will continue in IOP tx to reduce isolation, improve overall functioning, and reduce negative thinking patterns. Narrative Note: []
--- NOTE | 2021-05-21 11:10 | BH.SGPN.GN ---
Behaviors/Verbalizations/Mental Status: []Client alert and oriented, neatly dressed and groomed. Eye contact good. Motor activity appropriate. Speech within normal limits. Affect flat, mood anxious. Thoughts linear, logical, no signs of hallucinations or delusions. Client Response/Progress/Benefit: []Client responded well to session, taking notes and participating in worksheet discussion. Client set a goal to gain control over isolating in the evenings. Client plans to work on this by getting out of his house for an hour after work two-three times a week. Client reports he will need to reach out to a support to see if they want to hike, write out when he will get out, and use thought challenging to help accomplish this goal. Appeared to benefit from identifying a small goal to benefit mental health. Progress noted as client reports increased use of opposite action, but he continues to struggle with isolation and ruminations. Will continue IOP tx to combat distorted thought patterns, improve mood stability, and reduce isolation. Narrative Note: []
--- NOTE | 2021-05-21 11:10 | BH.SGPN.GN ---
Behaviors/Verbalizations/Mental Status: []Client alert and oriented, casually dressed and groomed. Eye contact good. Motor activity appropriate. Speech within normal limits. Affect constricted, mood depressed. Thoughts linear, logical, no signs of hallucinations or delusions. Client Response/Progress/Benefit: []Client able to provide input to discussion when prompted, appeared to listen attentively to peers. Reviewed safety behaviors he engages in that reinforce anxiety. Attentive during psychoeducation on mindfulness coping skills and their impact on mental health wellness. The group worked together to brainstorm anxiety reduction strategies. Client reported he will practice beathing skills and progressive muscle relaxation as ways to help manage his anxious symptoms. Client seemed to benefit from increased repertoire of anxiety reduction skills. Client will continue IOP tx to continue to practice healthy coping skills, challenge distorted thoughts and prevent decompensation.
== END 2021-05-22 23:59 ==
LOC: BHIOP 09:00
PROVIDERS: PCP Family Medicine; Visit Provider Psychiatry & Neurology Psychiatry
DX: F33.2 Major depressive disorder, recurrent severe without psychotic features (principal); F41.1 Generalized anxiety disorder; Z79.899 Other long term (current) drug therapy; F17.210 Nicotine dependence, cigarettes, uncomplicated
CPT/HCPCS: S9480; 90853

== ENCOUNTER 2021-05-25 09:00 | Outpatient (RCR) | payer SELFPAY ==
[2021-05-23 00:38] VITALS: BP 152/98; PULSE 73
--- NOTE | 2021-05-25 14:59 | BH.MDN_ITS ---
Multi-Disciplinary Note - Note 60-min Individual Time Started:: 10:30 Date: 05/25/21 Purpose of session/treatment goals addressed:: Reviewed current symptoms and progress in IOP. Eye Contact:: Good Motor Activity:: Appropriate Appearance:: Casual Speech:: Appropriate Mood:: Irritable, Depressed Affect:: Flat Thoughts:: Linear, Logical, No evidence of hallucinations/delusions noted Staff Interventions:: thought challenging, motivational interviewing, CBT techniques Client Response:: Pt shared that this past holiday was rough noting that he he had difficulty with loneliness and ruminating on his past relationship. He stru ggles with challenging negative automatic thoughts in the moment and relies heavily on distraction. Common thoughts over the weekend included I miss him... I miss what we had, etc. Other thoughts are related to anger that he does not know what his ex is currently doing. He could be sick and in the hospital and I wouldn't know. Therapist modeled skills to reframe and challenge these thoughts. Responds well with guidance and is able to stop and reframe which improve mood and motivates. Insight that the relationship was unhealthy and how the ex cheated on him and was manipulative. He is unsure why he places his ex and the relationship on a pedestal despite it being toxic. I guess I would rather by in a tox relationship than alone. Again we challenged the long- term consequences of this thinking and reframed. Risks/Concerns:: no risks or concerns noted. Progress Toward Goals/Plan:: Progress noted. He reports that he is proud that he was able to manage his thoughts and emotions over the holidays w/o hospitalization or suicidal ideation. 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 Admits improvement since recent hospitalization, however when lonely and depressed he struggles to see progress, ruminates on being alone, and struggles with challenging negative automatic thoughts. Does well in session with skills when prompted in session. His self-work was dependent on the love of someone else. Strong co-dependency. Agreed to re-evaluate his self-worth and contemplate healthy ways to improve self-esteem and self-worthy. Will continue in IOP to maintain safety, increase healthy coping, and improve functioning. Will continue to teach and model CBT techniques. Time Stopped:: 11:30
--- NOTE | 2021-05-29 12:28 | BH.MDN_ITS ---
Multi-Disciplinary Note - Note 60-min Individual Time Started:: 10:30 Date: 05/29/21 Purpose of session/treatment goals addressed:: IOP has switched to virtual this week due to COVID and pt has elected not to participate in virtual and wanted to meet in-person. Reviewed current symptoms and progress Eye Contact:: Good Motor Activity:: Appropriate Appearance:: Casual Speech:: Appropriate Mood:: Depressed Affect:: Flat Thoughts:: Linear, Logical, No evidence of hallucinations/delusions noted Staff Interventions:: motivational interviewing, CBT techniques, taught coping skills Client Response:: Pt began session stating I've been more depressed the past 2 days. He continues to ruminate on and grieve the loss of his relationship. He reports being angry that he devoted so much time to the relationship and someone else when he could have worked on himself. Insight that he currently has the time and ability to focus on himself. Pt has copious amount of free time of late and often finds this has led to extensive thinking on his ex. He attempts to reframe and use skills however limited benefit. Angry at ex and at himself for investing time and trust in that unhealthy relationship. 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 He reports having too much time alone and feels he has low energy. 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 His efforts of the past 3 weeks have paid off, however he is only seeing worst-case scenarios. Responds to challenges and interventions in sessions however s truggles when alone. Risks/Concerns:: No risks identified. Denies SI, plan, or intent. Progress Toward Goals/Plan:: Progress has been erratic. Despite accomplishing major task and making important decisions for the future he remains pessimistic and views only worst-case scenarios. Struggles to utilize skills independently. 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 Admits that he needs socialization at work which he has lacked for the past 4 years. 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 Of late he spends majority of his day alone at his business with limited customers which has also negative impacted mood. Pt benefits mostly from education and support in IOP. Plan is to increase independent coping skills, increase thought-challenging, and develop routine for home. Time Stopped:: 11:30
--- NOTE | 2021-06-01 09:05 | BH.SGPN.GN ---
Behaviors/Verbalizations/Mental Status: [] Eye contact is good. Motor activity is appropriate. Appearance is casual. Speech is Appropriate. Mood is euthymic. Affect is full. Thoughts are linear and logical. No evidence of psychosis. Reviewed daily check in sheet and no reports of suicidal ideations or intent. Client Response/Progress/Benefit: [] Pt participated when prompted. Attentive. Emotion for today is weirdly normal. Mental health win was that he vegged out over the weekend and was OK about it. States that in the past being alone with his thoughts would lead to excessive ruminations and depression. This weekend he was able to manage, reframe, and distract his thoughts to enjoy watching TV. Managed triggers. Had dinner with support and continues to clean out his house and business. In better headspace this past weekend and is looking forward to next chapter in his work life next week. Progress noted as he reports improved mood and less depression when alone. Benefited from group support, encouragement, and feedback. Will continue in IOP to maintain safety, increase healthy coping, and improve functioning. Narrative Note: []
--- NOTE | 2021-06-01 10:10 | BH.SGPN.GN ---
Behaviors/Verbalizations/Mental Status: []Client alert and oriented, neatly dressed and groomed. Eye contact good. Motor activity appropriate. Speech within normal limits. Affect incongruent to mood-flat, mood euthymic. Thoughts linear, logical, no signs of hallucinations or delusions. Client Response/Progress/Benefit: []Client responded well to session, attentive and participating in activity. Client was quiet during discussion, but taking notes. The group discussed what fear of failure means and what contributes to the development of fear of failure. Group shared that the fear of failure can lead to isolation, pushing people away, self-doubt, and not trying. Client did well during the activity and helped the group problem-solve and communicate. Client appeared to benefit from gaining awareness of the impact fear of failure can have on one?s mental health and wellbeing. Will continue IOP to further improve mood stability, reduce negative thinking patterns, and increase application of healthy coping skills. Narrative Note: []
--- NOTE | 2021-06-01 11:10 | BH.SGPN.GN ---
Behaviors/Verbalizations/Mental Status: []Client alert and oriented, casually dressed and groomed. Eye contact fair. Motor activity appropriate. Speech within normal limits. Affect congruent, mood anxious. Thoughts linear, logical, no signs of hallucinations or delusions. Client Response/Progress/Benefit: []Client responded well to session, engaged in the experiential activity and attentive throughout group processing. Client completed fear of failure worksheet and reported that fear of failure has kept client from ?believing that things can work out for the better with a new partner? and ?having healthy relationships and not being afraid of them leaving?. Client able to identify thoughts and behaviors that reinforce personal fear of failure which included: fear they can?t handle the unpredictable, doubting strengths/skills, negative self take, past experiences, and catastrophizing. Client participated in small group discussion regarding strategies to overcome fear of failure. Identified wanting to work on challenging his fear of failing by setting realistic expectations for dating and challenging negative self talk. Appeared to benefit from increased knowledge of strategies to combat fear of failure and gaining self awareness. Client will continue with IOP treatment to increase self-compassion and realistic goal setting. Narrative Note: []
--- NOTE | 2021-06-03 09:05 | BH.SGPN.GN ---
Behaviors/Verbalizations/Mental Status: []Client alert and oriented, neatly dressed and groomed. Eye contact good. Motor activity appropriate. Speech within normal limits. Affect constricted, mood anxious. Thoughts linear, logical, no signs of hallucinations or delusions. Reviewed client?s symptom tracker, no risk for suicidal ideation, plan, or intent as of 06/03/21 Client Response/Progress/Benefit: []Client responded well to session, attentive and receptive to feedback. Client reports feeling melancholy this morning due to having a dream about his ex-boyfriend last night. Client stated he has been doing better with coping and there have been some big mental health wins. However, dreaming about his ex triggered anxiety and sadness. The group helped client identify coping skills to help him manage this trigger today and client shared he can use self-talk. Client's other mental health wins included moving a unit at work which helps client financially and spending time with a friend last night. Appeared to benefit from group support and reviewing healthy coping skills. Will continue IOP tx to promote mood stability, further improve emotional regulation skills, and increase self-care. Narrative Note: []
--- NOTE | 2021-06-03 10:05 | BH.SGPN.GN ---
Behaviors/Verbalizations/Mental Status: []Client alert and oriented, casually dressed and groomed. Eye contact fair. Motor activity appropriate. Speech within normal limits. Affect congruent, mood depressed. Thoughts linear, logical, no signs of hallucinations or delusions. Client Response/Progress/Benefit: []Client responded well to session AEB client listening attentively to others and taking notes. Client was engaged throughout discussion introducing the topic of self care and its importance. Group identified myths about self care, such as self care is selfish, takes too much time, has to be fun, and has to be earned.Client raised hand and nodded throughout discussion debunking myths of self care. Client appeared to benefit from increased knowledge of the importance and benefits of self care. Will continue IOP treatment to increase self-confidence and decrease rumination. Narrative Note: []
--- NOTE | 2021-06-03 11:13 | BH.SGPN.GN ---
Behaviors/Verbalizations/Mental Status: [] Client alert and oriented, casually dressed and groomed. Eye contact fair to good. Motor activity appropriate. Speech soft with limited input provided. Affect constricted, mood depressed and anxious. Thoughts linear, logical, no signs of hallucinations or delusions. Client Response/Progress/Benefit: [] Client engaged participant AEB taking notes and nodding throughout. Attentive during group discussion on the various areas of self-care and made connections with the activity. Client completed worksheet which identified current self-care practices and what self-care activities client wants to start using. Client shared currently doing well in self-care areas of physical and spiritual self-care. Client selected social self-care as the area of self-care client would like to improve. Noted he could do so by scheduling a weekly hangout with closer friends, as well as make more efforts to consistently engage in the local lgbtq community. Appeared to benefit from completing the self-care evaluation and gaining insights into current self-care practices, as well as identifying areas in which he would like to improve upon. Will continue IOP tx to increase application of healthy coping skills, further improve depression management and thought challenging, as well as prevent decompensation. Narrative Note: []
--- NOTE | 2021-06-03 12:54 | BH.TPR ---
Treatment Plan Review Date of Admission:: 05/01/21 Date of Treatment Plan Review:: 06/03/21 Admitting Diagnoses:: MDD F33.2. MAJOR F41.1 Current Diagnoses:: MDD F33.2. MAJOR F41.1 Patient's Response to Treatment:: Pt consistency attends IOP and appears attentive. He does not participate much in group discussions however is attentive AEB by taking notes and discussing group topics in individual sessions. According to outcome measurements pt has shown an overall 30% decrease in symptoms since starting IOP. In the past week he has reported decreased depression and increased hope. According to 4 week outcome measurement pt's scores on the depression domain remain the same. No decompensation. Self-reports decreased ruminations on past relationship. Per outcomes pt has a 25% decrease in the anxiety domain. Denies suicidal thoughts in the past 2 weeks. Status of Current Problems and Symptoms: Outcomes note no change in scores in the depression domain, however as stated above pt reports decreased depression. Outcomes show a 50% improvement in knowing what he wants out of life and purpose in life. No suicidal thoughts in the past 2 weeks. Also reports decreased ruminations and grief associated with recent break-up which was trigger to psych admit. According to outcomes pt showed a 25% in the anxiety domain. 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 Taking action on tasks which has improved overall mental health. Continues to report low energy, decreased motivation, and increased sleep. Problem #1 Problem Name:: Depression Status of Goals:: Progress noted- Able to identify and challenge cognitive distortions and thinking patterns with assistance. Completed safety plan in the past which we review at times. He denies any suicidal thoughts in the past 2 weeks. Primary stressor is triggers to his past relationship which can often lead to rumination, isolation, and significant depression. Improvement in managing triggers since admission per pt. Able to identify negative thought patterns and core mistaken beliefs. Increased knowledge and skill however struggles to apply Team Recommendations:: Continue with IOP and currently goals. Problem #2 Problem Name:: Anxiety Status of Goals:: Ongoing-Able to identify anxiety triggers and some calming skills however is inconsistent in thier use. Team Recommendations:: Contuine to provided education and encourage use of skills, thought record, and thought-challlenging.
--- NOTE | 2021-06-05 09:05 | BH.SGPN.GN ---
Behaviors/Verbalizations/Mental Status: [] Eye contact is good. Motor activity is appropriate. Appearance is casual. Speech is Appropriate. Mood is depressed. Affect is flat. Thoughts are linear and logical. No evidence of psychosis. Reviewed daily check in sheet and no reports of suicidal ideations or intent. Client Response/Progress/Benefit: [] Pt participated at times during the group discussion. Attentive. Emotion for today is nervous. Daily symptom tracker notes 2/5 for depression. Mental health wins include getting together with support over the weekend. Believes it will be a healthy distraction, however thier will be triggers. Vitaliy encouraged him to look at this weekend as an opportunity to reframe and create new memories and experiences. Shared anxiety over job change next week which group normalized and praised him for taking action on tough decisions. Overall he reports that he is managing his emotions related to psychosocial stressors and grief. Progress noted per pt. Will continue in IOP to maintain safety, increase healthy coping, and prevent decompensation. Narrative Note: []
--- NOTE | 2021-06-05 10:10 | BH.SGPN.GN ---
Behaviors/Verbalizations/Mental Status: [] Eye contact is good. Motor activity is appropriate. Appearance is casual. Speech is Appropriate. Mood is depressed. Affect is flat. Thoughts are linear and logical. No evidence of psychosis. Client Response/Progress/Benefit: [] Engaged in experiential activity with peers. Attentive during psychoeducation on what is social support, the benefits of social support, and the things that keep us from utilizing social support for mental wellness. Attentive during interaction discussion and feedback from peers on these subjects AEB head nodding and note-taking. Able to see connection between experiential activity and group topic. Benefited from increased awareness of the benefits of social support in maintain mental health. Will continue in IOP to maintain safety, prevent decompensation, stabilize mood, and increase healthy coping skills. Narrative Note: []
--- NOTE | 2021-06-05 13:00 | BH.MDN ---
Multi-Disciplinary Note - Note 60-min Individual Time Started:: 11:15 Date: 06/05/21 Purpose of session/treatment goals addressed:: Reviewed progress and 4 week measurements. Eye Contact:: Good Motor Activity:: Appropriate Appearance:: Casual Speech:: Appropriate Mood:: Depressed Affect:: Flat Thoughts:: Linear, Logical, No evidence of hallucinations/delusions noted Staff Interventions:: thought challenging, motivational interviewing, CBT techniques, treatment planning, reviewed DSM-5 Client Response:: Briefly reviewed 4 week scores on DSM-5 cross-cutting scales which did show an overall reduction in symptoms. Pt began by discussing recent stressors and negatives. Ruminates on perceived failures or set-backs over the week. Used this to identify challenges and possible strategies to mitigate depressive symptoms. Improving in his ability to reframe, challenge, and accept emotions. Able to identify potential triggers over the weekend and worked out strategies to address. Pt is spending time away with friends in a cabin. Anxious about starting new job next week however is able to identify the benefits. Decreased rumination on what could go wrong and being mindful and focusing on the present. Risks/Concerns:: No risks or concerns noted. Progress Toward Goals/Plan:: Pt consistency attends IOP and appears attentive. He does not participate much in group discussions however is attentive AEB by taking notes and discussing group topics in individual sessions. According to outcome measurements pt has shown an overall 30% decrease in symptoms since starting IOP. In the past week he has reported decreased depression and increased hope. According to 4 week outcome measurement pt's scores on the depression domain remain the same. No decompensation. Self-reports decreased ruminations on past relationship. Per outcomes pt has a 25% decrease in the anxiety domain. Denies suicidal thoughts in the past 2 weeks.Outcomes note no change in scores in the depression domain, however as stated above pt reports decreased depression. Also reports decreased ruminations and grief associated with recent break-up which was trigger to psych admit. According to outcomes pt showed a 25% in the anxiety domain. 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 Taking action on tasks which has improved overall mental health. Continues to report low energy, decreased motivation, and increased sleep. Plan is to continue in IOP to prevent decompensation, increase consistent use of healthy coping, and stabilize grief reactions. Time Stopped:: 12:10
--- NOTE | 2021-06-09 09:02 | BH.SGPN.GN ---
Behaviors/Verbalizations/Mental Status: []Client alert and oriented, casually dressed and groomed. Eye contact good. Motor activity appropriate. Speech within normal limits. Affect congruent, mood anxious and dysthymic. Thoughts linear, logical, no signs of hallucinations or delusions. Reviewed client?s symptom tracker, no risk for suicidal ideation, plan, or intent as of 06/09/21 Client Response/Progress/Benefit: []Client responded well to session, willing to share and receptive to support from peers. Client reports feeling exhausted this morning sharing that he had his first full day back to work yesterday. Reports this was somewhat overwhelming and tiring, but overall a positive experience. Client discussed the importance of utilizing his days off and evenings for self-care, sharing plans to engage in a variety of self-care activities following group today. Shared that adjusting to this new schedule is a current stressor but that he feels confident he will be able to be successful as long as he continues to make his mental health a priority. Shared spending time with friends, as well as hiking over the weekend which continues to improve his mood as well. Appeared to benefit from reflecting upon personal progress as well as supportive group environment. Will continue IOP tx to prevent decompensation, continue to improve thought challenging and further stabilize mood. Narrative Note: []
--- NOTE | 2021-06-09 10:05 | BH.SGPN.GN ---
Behaviors/Verbalizations/Mental Status: []Client alert and oriented, casually dressed and groomed. Eye contact fair. Motor activity appropriate. Speech within normal limits. Affect congruent, mood anxious. Thoughts linear, logical, no signs of hallucinations or delusions. Client Response/Progress/Benefit: []Client responded well to session AEB client contributing to group discussion and listening attentively to others. Group discussed the origin of coping skills, examples of unhealthy coping, and why we use unhealthy coping skills. Client contributed to discussion of unhealthy coping skills, providing overeating as an example. Client participated in experiential activity, and was attentive throughout group processing, taking notes and nodding throughout discussion of the importance of external supports and internal coping skills. Appeared to benefit from increased knowledge of internal coping skills and external supports, as well as increased self awareness. Client will continue IOP treatment to decrease rumination and combat distortions that contribute to ongoing anxiety and depression. Narrative Note: []
--- NOTE | 2021-06-09 11:10 | BH.SGPN.GN ---
Behaviors/Verbalizations/Mental Status: []Client alert and oriented, neatly dressed and groomed. Eye contact good. Motor activity appropriate. Speech within normal limits. Affect constricted, mood euthymic. Thoughts linear, logical, no signs of hallucinations or delusions. Client Response/Progress/Benefit: []Client responded well to session, taking notes and contributing at times. Group discussed the different categories of coping skills which included distraction, emotional release, grounding, self-love, and thought challenging. Client's coping skill menu included: going on walks/hikes, exercise, using affirmations such as ?I am safe,? personal hygiene, and asking himself ?would I tell this to someone I love?? Appeared to benefit from increasing repertoire of healthy coping skills. Progress noted in client?s report of increased ability to cope at work and reduced isolation. Will continue tx to promote gains, combat distortions, and further improve daily functioning. Narrative Note: []
--- NOTE | 2021-06-11 09:00 | BH.SGPN.GN ---
Behaviors/Verbalizations/Mental Status: [] Eye contact is good. Motor activity is appropriate. Appearance is casual. Speech is Appropriate. Mood is anxious/irritable. Affect is congruent. Thoughts are linear and logical. No evidence of psychosis. Reviewed daily check in sheet and pt denies any suicidal ideations. Client Response/Progress/Benefit: [] Pt participated at times during the group discussion. Attentive. Daily symptom tracker notes / for anxiety and / for agitation. He talked in more detail today than in previous groups. He started a new job this week and was frustrated that some of the expectations regarding the job (increased socialization, more support) are not present. 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 Group allowed him to vent his frustrations, provided feedback, and empathized which appeared to be beneficial. Slight regression noted due to above stressors. Will continue in IOP to maintain safety, stabilize mood, and decrease grief reactions. Narrative Note: []
--- NOTE | 2021-06-11 10:05 | BH.SGPN.GN ---
Behaviors/Verbalizations/Mental Status: []Client alert and oriented, casually dressed and groomed. Eye contact good. Motor activity appropriate. Speech within normal limits. Affect congruent, mood anxious. Thoughts linear, logical, no signs of hallucinations or delusions. Client Response/Progress/Benefit: []Client responded well to session AEB contributing to group discussion and listening attentively to others. Client participated in experiential activity illustrating emotions that come with change, and was attentive throughout group processing. Client was engaged and took notes as other group members shared examples of emotions related to change. Clinician provided psychoeducation on the stages of change, and led group discussion of emotions associated with each. Client appeared to benefit from increased knowledge of stages of change and self awareness of emotions surrounding change. Will continue IOP treatment to increase application of depression and anxiety management skills to increase overall functioning. Narrative Note: []
--- NOTE | 2021-06-11 11:16 | BH.SGPN.GN ---
Behaviors/Verbalizations/Mental Status: []Client alert and oriented, casually dressed and groomed. Eye contact good. Motor activity appropriate. Speech within normal limits. Affect constricted, mood dysthymic and anxious. Thoughts linear, logical, no signs of hallucinations or delusions. Client Response/Progress/Benefit: []Client responded well to session, attentive and providing some input throughout which is progress as client is typically passive. Did well to process activity and work with group to relate the strategies used to overcome barriers in the activity to managing change in own life. Client identified a change they would like to make as ?Leaving [employer] back for my own?. Client reports making this change will benefit him by reducing isolation and financial stress, while also honoring his own morals/ethical standards. Client plans to try using starting small by talking with supports and exploring his current available options. Appeared to benefit from identifying a small goal to work towards. Client will continue IOP tx to further reduce negative self-talk and isolation, improve healthy decision making, as well as prevent decompensation. Narrative Note: []
--- NOTE | 2021-06-12 09:05 | BH.SGPN.GN ---
Behaviors/Verbalizations/Mental Status: [] Eye contact is good. Motor activity is appropriate. Appearance is casual. Speech is Appropriate. Mood is anxious. Affect is congruent. Thoughts are linear and logical. No evidence of psychosis. Reviewed daily check in sheet and no reports of suicidal ideations or intent. Client Response/Progress/Benefit: [] Pt was an active participant in group discussion on blame and empathy. Attentive. Provided appropriate feedback. Daily symptoms tracker notes 05/27 for anxiety. Emotion for today is optimistic. Mental health win included starting a local social group which he hosted at his house last night. Stated that it was nice to have others over to Cr[employer] jokes with. He shared numerous other benefits from the social event gathering last night. The plan to is meet with this group monthly. Kept his momentum going this AM by completing self-care. Stressor has focused mainly on work and less on past relationship. Talked about struggles and frustrations with his new job. Progress noted. Benefited from group support, education, and feedback. Will continue in IOP to maintain progress, prevent decompensation, and improve functioning. Narrative Note: []
--- NOTE | 2021-06-12 11:04 | BH.SGPN.GN ---
fBehaviors/Verbalizations/Mental Status: []Client alert and oriented, casually dressed and appropriately groomed. Eye contact fair. Motor activity appropriate. Speech WNL. Affect constricted, mood dysthymic. Thoughts linear, logical, no signs of hallucinations or delusions. Client Response/Progress/Benefit: []Client responded well to session AEB client listening attentively to others and providing input during group discussion on the pay offs and costs of the different communication styles. Attentive during psychoeducation on interpersonal DBT skill PATRICIA and client selected a communication skill to practice. Client stated his goal is to practice the PATRICIA communication skill by going through each step from prior difficult conversations to get more comfortable with the different steps and learn from past errors. Client seemed to benefit from increasing awareness of healthy strategies to improve communication. Will continue IOP tx to continue challenging distorted thought patterns, increase self confidence and prevent decompensation. Narrative Note: []
--- NOTE | 2021-06-12 11:20 | BH.MDN_ITS ---
Multi-Disciplinary Note - Note 45-min Individual Time Started:: 10:15 Date: 06/12/21 Purpose of session/treatment goals addressed:: Reviewed current symptoms and progress in IOP. Eye Contact:: Good Motor Activity:: Appropriate Appearance:: Casual Speech:: Appropriate Mood:: Irritable Affect:: Full Thoughts:: Linear, Logical, No evidence of hallucinations/delusions noted Staff Interventions:: thought challenging, CBT techniques Client Response:: Pt started his new job this week and is frustrated for several reasons. Employer has not followed through with promises and this was meant as an opportunity to increase socialization, however currently they have him working by himself. He also has concerns over how the business is run. Blames himself for making the wrong decision. Responsive to thought challenging and reframing. Able to identify how there was no way for him to know the concerns that he would encounter. 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 Prior to job change he was unsure and emotionally, physically, and financially drained by his business which lead to being burned out with concerns if he could do it all by himself. Currently he is focused and working on ways that he could re-open with specific changes to increase support and decrease burnout. New shop and location are also seen as positives to start fresh. He is being realistic and will remain part-time at current job and assertively address concerns with boss until he feels he can leave. Also shared how is initiated a social group with like-minded peers which meant yesterday and was great. Reports laughing, interacting, and getting a great deal of benefit from social group. Hopes to meet monthly. First session since s tarting which has not been focused on his ex, loneliness, and overwhelming rumination. Risks/Concerns:: No risks or concerns noted. Progress Toward Goals/Plan:: Progress noted. Despite recent stressors pt is managing as well as can be expected. Not ruminating, isolating, or focusing on his past relationship. Increased energy and motivation. More hopeful. Utilizing skills such as thought challenging, reframing, and is able to identify cognitive distortions. Not seeing set-backs as devastating failures but as opportunities to grow and learn. Plan is to continues in IOP to prevent decompensation. Reached out to his outpatient therapist to collaborate as pt is nearing end of IOP, however I have not heard back. Time Stopped:: 11:00
--- NOTE | 2021-06-16 09:10 | BH.SGPN.GN ---
Behaviors/Verbalizations/Mental Status: [] Eye contact is good. Motor activity is appropriate. Appearance is casual. Speech is Appropriate. Mood is depressed. Affect is flat. Thoughts are linear and logical. No evidence of psychosis. Reviewed daily check in sheet and pt reports 1/5 for suicidal thoughts and 0/5 for intent. Client Response/Progress/Benefit: [] Pt participated at times during the group discussion on connection between thoughts, feelings, and behaviors. Attentive. Emotion for today is uneasy. Daily symptom tracker notes 3/5 for depression and 2/5 for anger. Mental health wins include completing self-care for 4 days straight. He is trying in instill a healthy routine in the AM. 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 He has an appt with a [employer] tomorrow to discuss his options. Ruminating however insight that he is being proactive and seeking options. Experienced a triggering event yesterday as he went on a date. This led to thoughts about his ex and he would compare date to his ex. I know dating is not the best choice. Depression and rumination however he reports that he utilized skills, reframed, identified realistic view of past relationship, and reached out to support. These choices lessened the intensity of the distress . Progress noted as he utilized skills independently. Benefited from group support, encouragement, and feedback. Will continue in IOP to maintain safety, increase healthy coping, and prevent decompensation. Narrative Note: []
--- NOTE | 2021-06-16 11:08 | BH.SGPN.GN ---
Behaviors/Verbalizations/Mental Status: []Client alert and oriented, casually dressed and groomed. Eye contact good. Motor activity appropriate. Speech within normal limits. Affect congruent, mood anxious and dysthymic. Thoughts linear, logical, no signs of hallucinations or delusions. Client Response/Progress/Benefit: []Client mostly engaged during activity AEB providing group with some ideas on how to cope with internal barriers that keep clients stuck from moving towards goals. Continues to struggle with maintaining a passive participant, which may impede ability to gain full benefits from group or reduce social anxiety. Client able to identify own personal barriers to his desired reality, which included: struggling to accept his current mental health state, lack of local social support, not giving himself credit, distorted thoughts, and impatience. Client wants to work on reducing distorted thoughts of ?shoulding? by practicing reframing his goals into smaller more attainable tasks. Reports this will aid in further improving overall mood and ability to give himself credit for where he is making progress. Benefited from group by identifying personal obstacles and potential solutions to desired reality. Client will continue IOP tx to reduce depressive symptoms, improve consistent thought challenging, and continue to promote healthy change behaviors. Narrative Note: []
--- NOTE | 2021-06-16 11:17 | BH.MDN ---
Multi-Disciplinary Note - Note 60-min Individual Time Started:: 10:00 Date: 06/16/21 Purpose of session/treatment goals addressed:: Met with patient to review current progress and symptoms. Pt had reported 1/5 for suicidal thoughts and 0/5 for intent on daily tracker which he has not reported in several weeks. Eye Contact:: Good Motor Activity:: Appropriate Appearance:: Casual Speech:: Appropriate Mood:: Depressed Affect:: Flat Thoughts:: Linear, Logical, No evidence of hallucinations/delusions noted Staff Interventions:: thought challenging, CBT techniques, discharge planning, completed risk assessment / safety planning Client Response:: Pt shared that he had fleeting suicidal ideations last evening. Denied any plan or intent. We processed his thoughts, emotions, and behaviors. Depressive thoughts associated with his ex. He went on a date which was a triggering event to good times with his ex. Pt was able to utilize thought stopping and reframing skills last evening. Verbalized realistic affirmations and was able to identify that that relationship was unhealthy for him and appears he actually was able to turn triggering event into increased confidence in his ability to manage his thoughts. I'm much better than I was 2 months ago. Stated that suicidal thought was fleeting and less intense than previous. He has significant external stressors (job, finances, etc) which are causing anxiety and stress. Despite this he reports being hopeful and more engaged with my life. Less apathetic and more motivated to make changes. Risks/Concerns:: Denies active suicidal ideations, plan, or intent. Reported fleeting SI yesterday. Future-oriented (looking into properties for business). No access to firearms (his gun was taken away in 03/2021). Does not present as imminent danger to himself due to no active SI, plan, or intent. We reviewed his safety plan and he is aware of crisis numbers. Progress Toward Goals/Plan:: New job and finances are significant stressors however he reports increased engagement with his life. 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 Had plans to visit friends over the weekend. He is utilizing skills. Increased awareness of cognitive distortions and strategies to minimize impact of negative automatic thoughts. Improved communication with family/friends asking for help and support. Notes very positive talk his his mother last night. We discussed discharge from [facility] and pt is hesitant and he benefits greatly from skills, support, and socialization. He is nervous he will decompensate w/o IOP. We agreed with a plan to reduce number of days in the next 2 weeks with plan to discharge after that. Time Stopped:: 11:05
--- NOTE | 2021-06-18 09:10 | BH.SGPN.GN ---
Behaviors/Verbalizations/Mental Status: [] Eye contact is good. Motor activity is appropriate. Appearance is casual. Speech is Appropriate. Mood is depressed. Affect is flat. Thoughts are linear and logical. No evidence of psychosis. Reviewed daily check in sheet and pt reports suicidal thoughts and intent. Will meet with therapist for risk assessment. Client Response/Progress/Benefit: [] Pt participated when prompted. More distracted than usual. Tearful. Mental health win was was getting here today and asking for help. Pt was guarded and did not share the extent of the cause or triggers to his depression. Reports negative or bad thoughts and frustration due to regression. cyclical progress in mental health. Several crying spells in the past 2 days. He reports attempting to utilize certain coping skills with limited benefit. No progress noted since last session. Benefited from group support and encouragement. Group empathized with his struggles. Will continue in IOP to maintain safety, stabilize mood, and increase consistent use of coping skills. Narrative Note: []
--- NOTE | 2021-06-18 12:35 | BH.MDN_ITS ---
Multi-Disciplinary Note - Note 60-min Individual Time Started:: 10:10 Date: 06/18/21 Purpose of session/treatment goals addressed:: Safety planning, risk assessment, allowed pt to vent, processed emotions. Eye Contact:: Good Motor Activity:: Appropriate Appearance:: Casual Speech:: Appropriate Mood:: Depressed Affect:: Flat Thoughts:: Linear, Logical, No evidence of hallucinations/delusions noted Staff Interventions:: thought challenging, completed risk assessment / safety planning, taught coping skills, other - grief, managing triggers. Client Response:: Pt was tearful this AM in process group and reported crying spells and depressive episode last evening. Reviewed daily symptom tracker which noted suicidal thoughts with intent. Tearful at times during the session. He discussed several events and thoughts over the past 2 days and we developed a timeline of his struggles. Struggles appear to have began after meeting with his outpatient therapist on Tuesday evening. They had a discussion on some very triggering and difficult topics including his ex and pt's future business. Work on Tuesday was stressful and he had some negative events occur. Upon returning home he started to look for part-time jobs at the request of his outside therapist and encountered a job at his ex's work which triggered ruminating thoughts about his ex and his ex's upcoming birthday. He began to have suicidal thoughts with intent. He denied a plan. Stated I want to ruin his birthday implying that killing himself would impact his ex. Currently has insight that this would ultimately impact his support (friends/family) and have little impact on ex. He then utilized thought challenging, reframing, affirmations, and realistic thinking skills to combat triggers and ruminations. This was helpful. He does this well with help from therapist so we discussed further how to implement this while alone. SI was fleeting for 1-3 hours last night. Was able to control thoughts with some difficulty. This SI was not the most intense that he has had (this occurred in 03/2021). Protective factors definitely stopped him. When encounter with SI last evening was able to distract and fall asleep I just went to be thinking tomorrow would be better He notes that this afternoon is better than yesterday. He woke up this AM with thoughts about finances, work stressors, and where I should be as opposed to where I am. We worked through this again together and he responded well. Towards the end of the session he was smiling, engaged, and laughing at certain irrational thinking patterns yesterday. I feel way better. Risks/Concerns:: Denies active suicidal ideations, plan, or intent. He reported SI with intent last evening. No plan. This AM he reported passive thoughts of and no SI. Reports that currently depression is less intense than when he entered [facility]. Contracts for safety. Future-oriented (meeting with [employer] and with telephone sales agent to view property this afternoon). Also has dinner plans with healthy support and birthday alliance party with friend this weekend. Protective factors are his parents and friends. Does not present as imminent danger to himself currently due to no active SI, plan, or intent. No access to firearms. We reviewed safety plan and he was able to identify internal skills to utilize distractions, and support to reach out if SI occurs (Bjorn, crisis). Progress Toward Goals/Plan:: Limited progress since last visit. Struggled over the past 2 days with triggers and negative automatic thoughts. He did utilize internal and external skills when distressed. Verbalizes that rationally he doesn't want his ex in his life, is better off w/o him, and at is angry at they way he was treated and lied to in the relationship, however emotionally when depressed he tends to remember only the positives. Improved management of relationship triggers since entering [facility] and is upset that last night was a failure or regression. Able to reframe that perception. Meeting with [employer] this afternoon is important and we were able to discuss how if it doesn't go well there are other guzman and avenues, which he agreed with. Plan is to continue in [facility] to maintain safety and provided support. Scheduled to attend tomorrow. Reviewed safety plan. Encouraged to call crisis if SI occurs afterhours. Has plan this evening with support. Time Stopped:: 11:30
--- NOTE | 2021-06-19 09:05 | BH.SGPN.GN ---
Behaviors/Verbalizations/Mental Status: [] Pt eye contact good, casually dressed, motor activity appropriate, speech normal rate and tone, mood anxious, congruent affect, thoughts linear and intact, no evidence of delusions or hallucinations. Reviewed client?s symptom tracker, no indication of suicidal ideation, plan, or intent as of today. Client Response/Progress/Benefit: [] Pt responded well to session AEB by listening to others, providing supportive feedback, and sharing thoughts and feelings with group. Pt reports mood as ?more hopeful than yesterday?, sharing that he gained several insights following his individual session yesterday and realized several triggers impacting his mood. Reflected on skills used to address these triggers such as perspective challenging, focusing on what?s in his control, and identifying distorted thought patterns. Noted plans to spend time with a friend this evening as well as engage in both necessary and fun self-care activities over the weekend to prevent decompensation as well. Progress in improved insight and ability to challenge perspective. Continues to struggle with distorted thinking and situational stress management. Recommended continued IOP to further decrease anxiety, improve consistent skill application, and prevent decompensation. Narrative Note: []
--- NOTE | 2021-06-19 10:10 | BH.SGPN.GN ---
Behaviors/Verbalizations/Mental Status: []Client alert and oriented, casually dressed and groomed. Eye contact fair. Motor activity appropriate. Speech within normal limits. Affect congruent, mood anxious and euthymic. Thoughts linear, logical, no signs of hallucinations or delusions. Client Response/Progress/Benefit: []Pt was an attentive participant AEB taking notes and contributing throughout. Attentive during psychoeducation on Conflict Styles ( Avoidant, Competing, Accommodating, and Collaborating). Participated in interactive group discussion on benefits of conflict.? Pt along with peers identified several reasons conflict is often avoided which included: anxiety, fear of other?s reaction, not wanting to face additional conflict, and negative past experiences. Pt reported connecting most with the accommodating and avoiding styles. Pt stated realizing his conflict styles has been eye opening because realizes he put himself in situations with past relationships that were not good for him. Benefited from increased awareness on conflict styles. Will continue in IOP to challenge distorted thoughts, continue use of healthy coping skills and prevent decompensation.
--- NOTE | 2021-06-19 11:10 | BH.SGPN.GN ---
Behaviors/Verbalizations/Mental Status: []Client alert and oriented, casually dressed and groomed. Eye contact good. Motor activity appropriate. Speech within normal limits. Affect congruent, mood euthymic. Thoughts linear, logical, no signs of hallucinations or delusions. Client Response/Progress/Benefit: []Client engaged in session AEB contributing to discussion and engaging in activity. Client did well to review conflict styles and the various impacts of each on mental health. Client participated in activity and was actively listening to peers? suggestions at times, as well as was willing to be assertive when the potential conflict was important. Client attentive on education about fair fighting rules handout. To better address conflict, client wants to work on openly communicating his thoughts and feelings instead of shutting down. Client reported he realizes shutting down leads to his needs not getting met, among other consequences. Appeared to benefit from gaining strategies to help client better manage conflict. Client is to continue IOP to increase focus on what is in his control, challenge negative thoughts, improve confidence and prevent decompensation.
== END 2021-06-22 23:59 ==
LOC: BHIOP 09:00
PROVIDERS: PCP Family Medicine; Visit Provider Psychiatry & Neurology Psychiatry
DX: Z00.00 Encounter for general adult medical examination without abnormal findings (principal)
CPT/HCPCS: S9480; 90834; 90837; 90853

== ENCOUNTER 2021-06-23 07:29 | Outpatient (RCR) | payer SELFPAY ==
[2021-06-23 00:43] VITALS: BP 152/98; PULSE 73
--- NOTE | 2021-06-25 10:59 | BH.MDN_ITS ---
Multi-Disciplinary Note - Note 60-min Individual Time Started:: 09:10 Date: 06/25/21 Purpose of session/treatment goals addressed:: risk assessment, allowed client to vent, processed emotions, set small self-care goals for the day. Eye Contact:: Fair Motor Activity:: Slowed Appearance:: Casual Speech:: Tangential Mood:: Depressed Affect:: Flat - tearful throughout session. Thoughts:: Circular, No evidence of hallucinations/delusions noted Staff Interventions:: thought challenging - challenged distorted thought patterns reinforcing depression and self-doubt. Used dialectical thinking strategies and reframing techniques., motivational interviewing, strengths perspective, completed risk assessment / safety planning - Client has the safety plan that was created with his outpatient therapist last week. Client will be contacting two friends today. Client denies any active SI, plan, or intent., other - helped client set small self-care goals to improve mood and gain social connection today. Client Response:: Client was tearful this AM and requested to meet with this therapist as IOP group sessions were canceled due to weather. Reviewed daily symptom tracker which noted 3/5 for thoughts of suicide and 1/5 for risk of suicide. This is decreased from previous session on 06/18/21 and client denied any active SI. Tearful during the beginning of session and shared that he has been ?non-stop crying? for the past week. He discussed several events and thoughts over the past week and identified the triggers. Client reports he was unable to get a line of credit which was why he met with the [employer] last week. 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 Client shared he had to clean out his office and will have to turn in his keys today. Very tearful as client reports ?I?ve lost more in the past 5 months than I ever thought possible.? Client also angry at his ex and grieving as today is exactly 5 months since his ex left. Processed emotions of angry, sadness, hurt, loneliness, feeling like a failure, and low self-worth. He then utilized thought challenging, reframing, affirmations, and realistic thinking skills to combat triggers and ruminations. This was helpful and he said he tried to challenge negative thoughts this morning as well. He does this well with help from therapist so we discussed further how to implement this while alone. Client shared he has been in ?survival mode? this week, so he has not acknowledged any strengths or given himself credit. Able to reframe in session and note that he applied for three jobs this week, used his safety plan, journaled, and reached out to supports this week. Client willing to set goals for today including journaling his resilience traits, reaching out to his friend Bjorn, and going sledding. Client stated going sledding would be very beneficial because ?I?m a big kid at heart.? Client was not tearful by the end of session and was using more positive self-talk. Throughout session client was verbalizing that he has been saying to himself progress isn't linear and that all emotions good and bad end. This thought challenging was helpful. Risks/Concerns:: Client filled out the daily symptom tracker sheet and self- reported 3/5 for thoughts of suicide and 1/5 for risk of suicide today. Client denied any active suicidal ideations to this therapist as of 06/25/21. Client admits to suicidal ideations on Tuesday night and client used his safety plan and reached out to a friend. Denies any suicidal ideations since then. Future oriented today plans to go sled riding this afternoon, has a job interview next week, and plans to come to group three days. Reports ability to maintain safety and follow his safety plan if needed. Reports ability to call crisis or go to the ER if he cannot keep himself safe. Progress Toward Goals/Plan:: Limited progress since last visit. 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 He did utilize internal and external skills when distressed and was able to reframe distortions during session. Verbalizes that rationally he knows he deserves to be happy and that his ex did not love client in the ways client deserved, however, when low client struggles to challenge perspective. Improved management of relationship triggers since entering [facility] and client acknowledged this in session. Client also acknowledged that he is not suicidal today which is progress. Plan is to continue in [facility] to maintain safety and provided support. Scheduled to attend Tuesday06/30/21. Reviewed safety plan. Encouraged to call crisis if SI occurs afterhours. Client is future oriented and was more interactive and joking by the end of session. Time Stopped:: 10:40
--- NOTE | 2021-06-30 09:05 | BH.SGPN.GN ---
Behaviors/Verbalizations/Mental Status: [] Eye contact is good. Motor activity is appropriate. Appearance is casual. Speech is Appropriate. Mood is depressed. Affect is flat. Thoughts are linear and logical. No evidence of psychosis. Reviewed daily check in sheet and no reports of suicidal ideations or intent. Client Response/Progress/Benefit: [ Pt participated when prompted. Attentive. Emotion for today is anxious. Mental health win is that he filled out some applications and has a job interview for this . 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 Reports that his was good as he spent time with support. Anxiety and distressed due to Lots of changes. 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 Admits to being lonely. Limited progress. Benefited from goup support, encouragment, and feedback. Will continue in [facility] to maintain safety, increase healthy coping, and improve functioning. Narrative Note: []
--- NOTE | 2021-06-30 10:00 | BH.SGPN.GN ---
Behaviors/Verbalizations/Mental Status: [] Eye contact is fair. Motor activity is appropriate. Appearance is casual. Speech is Appropriate. Mood is dysthymic. Affect is constricted. Thoughts are linear and logical. No evidence of psychosis. Client Response/Progress/Benefit: []Pt was an engaged participant in group discussion and activity. Attentive during psychoeducation. Pt participated in group discussion in which group defined fixed mindset and provided insight on how a fixed mindset could impact mental health and result in. Engaged in group discussion about growth mindset, helping group identify impact grown mindset can have on mental health. Pt shared one of his fixed mindset thoughts is Should've done more today. Client stated he often has fixed thoughts about comparing self to others and not giving himself credit for things he does that are positive. Benefited from increased awareness on the role of fixed mindset on mental health. Will continue in IOP to show consistent application of skills, improve emotion regulation and prevent decompensation. Narrative Note: []
--- NOTE | 2021-06-30 11:05 | BH.SGPN.GN ---
Behaviors/Verbalizations/Mental Status: []Client alert and oriented, neatly dressed and groomed. Eye contact good. Motor activity appropriate. Speech within normal limits. Affect constricted, mood anxious. Thoughts linear, logical, no signs of hallucinations or delusions. Client Response/Progress/Benefit: []Client engaged during activity and discussion. Client worked in small group to apply skills learned to reframe own personal fixed thoughts. Appeared to benefit from suggestions provided by peers and from providing ideas to peers in return. Client identified fixed thoughts including ?I?m scared I?m never going to get out of this hole I?m in? and ?I should have done more today.? client practiced reframing these fixed thoughts using growth-mindset strategies and identifying the distortions. Reframed fixed thoughts and shared ?it?s okay if I don?t accomplish different things as I?m doing the best I can.? Benefitted from discussing benefits of growth mindset and brainstorming strategies for prompting growth-mindset. Will continue IOP tx to reinforce healthy coping skills, increase ability to cope with ongoing psychosocial stressors, and improve emotional regulation skills. Narrative Note: []
--- NOTE | 2021-06-30 12:06 | BH.MDN ---
Multi-Disciplinary Note - Note 60-min Individual Date: 06/30/21
--- NOTE | 2021-07-02 09:05 | BH.SGPN.GN ---
Behaviors/Verbalizations/Mental Status: [] Eye contact is good. Motor activity is appropriate. Appearance is casual. Speech is Appropriate. Mood is depressed. Affect is flat. Thoughts are linear and logical. No evidence of psychosis. Reviewed daily check in sheet and no reports of suicidal ideations or intent. Client Response/Progress/Benefit: [] Pt participated when prompted. Attentive. Emotion for today is depressed. Shared that he was crying yesterday while walking. Crying throughout the day. Did not elaborate on triggers to the group. Also reports poor sleep at night which is negatively impacting his days. He claims to be utilizing skills with limited benefit. Mental health win is that he has a job interview this afternoon. Limited progress noted. Benefited from group support. Group provided feedback on managing thoughts as well as some advice for the interview which was also helpful. Will continue in IOP to maintain safety and prevent decompensation. Narrative Note: []
--- NOTE | 2021-07-02 10:00 | BH.SGPN.GN ---
Behaviors/Verbalizations/Mental Status: []Client alert and oriented, casually dressed and groomed. Eye contact good. Motor activity appropriate. Speech within normal limits. Affect flat, mood euthymic. Thoughts linear, logical, no signs of hallucinations or delusions. Client Response/Progress/Benefit: []Client responded well to group session AEB taking notes and listening attentively to others. Group members worked together to define and provide personal examples of pitfalls. Client was engaged throughout group discussion, nodding throughout. Client participated in experiential activity and provided problem solving strategy and communicated effectively with other group members. Client appeared to benefit from increased knowledge of pitfalls and how they affect mental health. Will continue IOP treatment to increase emotional regulation skills and decrease worry to improve overall functioning. Narrative Note: []
--- NOTE | 2021-07-02 13:49 | BH.MDN ---
Multi-Disciplinary Note - Note 30-min Individual Time Started:: 11:30 Date: 07/02/21 Purpose of session/treatment goals addressed:: Review progress and current symptoms. Discharge and aftercare planning. Eye Contact:: Poor Motor Activity:: Appropriate Appearance:: Casual Speech:: Appropriate Mood:: Irritable, Depressed Affect:: Flat Thoughts:: Linear, Logical, No evidence of hallucinations/delusions noted Staff Interventions:: thought challenging, motivational interviewing, discharge planning Client Response:: Pt spent first part of the session reviewing the stressors and decompensation last week. He had crying spells yesterday and is fearful of further decompensation. Despite efforts to have sessions focus on taking action, overcoming grief, and future goals it has been difficult for pt to remain focused as he instead prefers to vent about past failed relationship and current stressors. Does well in session to reframe, challenge, and break negative automatic thoughts however when alone (and not distracted) outside of IOP he has not shown consistent benefit from skills learned. We reviewed current ways to address triggers and negative thoughts once again. Risks/Concerns:: Denies SI, plan, or intent today. Progress Toward Goals/Plan:: This therapist was off for 10 days and upon returning consulted with treatment team on pt's functioning. Pt decompensated last week with significant ruminations, crying spells, and fleeting SI(refer to note 06/26/20). Pt continues to report depressive symptoms and anxiety which are impacting functioning. Also reports poor sleep. We have talked in the past about discharge from IOP however pt has not been able to show consistent stability for the past 3 weeks. 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 He reports significant benefit from IOP support and feels that discharge will lead to further decompensation. Long discussion on IOP being short-term. He has not seen his outside therapist in several weeks which may also impact anxiety about discharge. Appointment was set with pt's therapist for tomorrow AM. Decreased IOP from 3 days to 2 days next week as he has stressors (job interview, rodriguez's day triggers) with plan to discharge on 07/10/21. Pt continues to benefit from IOP per pt report. Will continue to maintain safety, prevent decompensation, and increase health coping skills. Fearful that discharge at this point will lead to significant distress and possible hospitalization. Pt continues to decline to meet with program psychiatrist as he is currently linked with [facility] psych. [facility] psychiatrist has been kept up-to-date on progress during treatment team meetings and one on one meetings with this therapist. Pt is a self-pay patient and elects to see [facility] psychiatrist due to those services being free due [facility] with [facility]. Time Stopped:: 12:00
--- NOTE | 2021-07-07 09:10 | BH.SGPN.GN ---
Behaviors/Verbalizations/Mental Status: [] Eye contact is good. Motor activity is appropriate. Appearance is casual. Speech is Appropriate. Mood is depressed. Affect is flat. Thoughts are linear and logical. No evidence of psychosis. Reviewed daily check in sheet and reports 1/5 for suicidal thoughts and 0/5 for intent. Client Response/Progress/Benefit: [] Pt participated at times during the group discussion. Attentive. Mental health win was that he got a call back for a 2nd job interview. Increased self-esteem as they essentially created a position they thought I would be good at. Focused most of check-in on struggles which include poor sleep. Waking up at night with anxiety and racing thoughts. I'm just tossing and turning. This is impacting his energy and mood the next day. Upcoming triggers include ex's b-day. I'm stuck in certain thoughts. Yesterday was rodriguez's day which was very challenging emotionally as well. 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 Group was empathetic. Limited progress as pt continues to struggle with ruminating on past relationship and current stressors. He reports several triggers to his old relationship which become situational events than hinder progress. Group focused on his efforts, his progress, and his win which helps reframe current status. Will continue in IOP to prevent decompensation. Narrative Note: []
--- NOTE | 2021-07-07 11:15 | BH.SGPN.GN ---
Behaviors/Verbalizations/Mental Status: []Client alert and oriented, neatly dressed and groomed. Eye contact good. Motor activity appropriate. Speech within normal limits. Affect flat, mood dysthymic. Thoughts linear, logical, no signs of hallucinations or delusions. Client Response/Progress/Benefit: []Pt did well to remain attentive throughout session, AEB providing input throughout discussion. Engaged as group reviewed the importance of taking a strengths-based approach in order to foster a healthier perspective and better manage mental health symptoms. Completed strengths exploration worksheet and identified personal strengths to include: common sense, honesty, logic, wisdom, and empathy. Pt reported he will improve his strengths by challenging his perspective, reminding himself that growth is not linear, and continuing to openly express his emotions. Benefited from identifying personal strengths and strategies for enhancing use of identified strengths. Pt demonstrating progress AEB recent job interview and no report of suicidal ideation. Pt to continue IOP tx to further improve emotional regulation skill, reduce distorted thinking patterns, and improve distress tolerance. Narrative Note: []
--- NOTE | 2021-07-07 12:06 | BH.MDN ---
Multi-Disciplinary Note - Note 45-min Individual Time Started:: 10:30 Date: 07/07/21 Purpose of session/treatment goals addressed:: Review progress. Discharge and aftercare planning. Eye Contact:: Fair Motor Activity:: Appropriate Appearance:: Casual Speech:: Appropriate Mood:: Depressed Affect:: Flat Thoughts:: Linear, Logical, No evidence of hallucinations/delusions noted Staff Interventions:: thought challenging, motivational interviewing, discharge planning, goal setting Client Response:: Pt reports continues depression, poor sleep, and anxiety. Reports waking up throughout the night which is impacting him throughout the day. Has tried to utilize OTC sleep aids with little benefit. Insight that this is result of anxiety and stress. Verbalizes that he is attempting several coping skills with little benefit. Offered to have him see psychiatry here tomorrow however refused. Wishes to call his [facility] psychiatrist. Several recent and upcoming relationship triggers (Leonardo's Day and Ex's b-day). He has made plans for each day to help minimize rumination and impact. Insight that it is not a failure to cry or grieve those days. Reports increased confidence that he can manage. Remains difficult for him to challenge absolute thinking shoulds, and catastrophizing however increased insight that he is utilizing these cognitive distortions. He met with his therapist last week and has upcoming appts scheduled. His interview went well and has second upcoming. He feels that he is at a place to discharge. Plan to attend 2 more times. Risks/Concerns:: No risks or concerns noted. Progress Toward Goals/Plan:: Progress noted. Reports feeling more stable. Mood remains tied to situational stressors and relationship triggers, however decreased intensity, duration, and frequency of significant depression, panic, and SI. Has remained out of the [facility] for almost 3 months. Consulted with pt's outpatient and we both agree pt has made progress and is as stable as he has been since 01/2021. Plan to discharge next week. Time Stopped:: 11:10
--- NOTE | 2021-07-10 09:10 | BH.SGPN.GN ---
Behaviors/Verbalizations/Mental Status: [] Eye contact is good. Motor activity is appropriate. Appearance is neat. Speech is Appropriate. Mood is euthymic. Affect is full. Thoughts are linear and logical. No evidence of psychosis. Reviewed daily check in sheet and no reports of suicidal ideations or intent. Client Response/Progress/Benefit: [] Pt was an active participant in group discussion on coping with triggers. Attentive. Provided appropriate feedback. Daily symptom tracker notes 05/27 for depression and anxiety. Pt presents in better spirits today. Reports improved sleep last night which definitely helps my mood. Reports that he spoke with psychiatrist who increased certain medication which helped with sleep. Completed second interview yesterday and is expecting to her from potential employer today. He is optimistic. He talked about upcoming trigger (EX's b-day) and how he has prepared distractions and social events that day to help mitigate the impact. Insight that he will probably crybut that is OK and not a sign of failure. States I made it through other significant days like , , , etc. Utilized resilience skills and affirmations. Progress noted. Will continue in IOP to prevent decompensation. Plan to discharge at next session. Narrative Note: []
--- NOTE | 2021-07-10 10:15 | BH.SGPN.GN ---
Behaviors/Verbalizations/Mental Status: []Client alert and oriented, neatly dressed and groomed. Eye contact good. Motor activity appropriate. Speech within normal limits. Affect constricted, mood euthymic. Thoughts linear, logical, no signs of hallucinations or delusions. Client Response/Progress/Benefit: []Pt was an active participant in group discussion and experiential activity. Attentive during psychoeducation. Group had an interactive discussion on the benefits of emotional regulation in which pt provided insight. Group identified several benefits to emotional regulation which included; less consequences, more stable relationships, improved communication, and better ability to manage stress. Group also was able to identify how emotions can impact our communication leading to; difficulty articulating our thoughts, shutting down, not being an active listener, mind-reading, and getting defensive. Pt participated in experiential activity and reported the activity helped pt realize the progress he has made in IOP. Benefited from increased awareness into how emotions can impact one's ability to effectively communicate. Plans to discharge from IOP tx next week, but can benefit from one more treatment day to support pt during an upcoming stressors. Narrative Note: []
--- NOTE | 2021-07-10 11:15 | BH.SGPN.GN ---
Behaviors/Verbalizations/Mental Status: []Client alert and oriented, neatly dressed and groomed. Eye contact good. Motor activity appropriate. Speech within normal limits. Affect constricted, mood euthymic. Thoughts linear, logical, no signs of hallucinations or delusions. Client Response/Progress/Benefit: []Pt engaged in session AEB client listening attentively to peers and providing input. Attentive during psychoeducation on 4 zones of regulation. Pt able to identify feelings and behaviors for each zone. Pt identified coping skills one can use to support self in each zone. Pt stated belief that he is in the green zone today sharing he is optimistic and hopeful. Reflected on the progress from last week. Pt stated he wants to work on sticking with his morning routine and practicing self-reflection to maintain the zone he is in today. Benefited from increased education on zones of regulation or stages of alertness for emotions and healthy coping skills to use for each zone. Pt will continue IOP tx for one more session to reinforce healthy coping skills and promote support due to an upcoming trigger. Narrative Note: []
--- NOTE | 2021-07-15 09:04 | BH.SGPN.GN ---
Behaviors/Verbalizations/Mental Status: []Eye contact is good. Motor activity is appropriate. Appearance is casual. Speech is Appropriate. Mood is anxious and overwhelmed. Affect is congruent. Thoughts are linear and logical. No evidence of psychosis. Reviewed daily check in sheet and no reports of suicidal ideations or intent. Client Response/Progress/Benefit: []Pt responded well to session AEB pt sharing thoughts and feelings, listening attentively to others and providing supportive feedback. Pt stated feeling a mix of emotions as it is his last day and he is proud of all the progress he is made, but that it is also his ex?s birthday which is a major trigger for him. Spent time reflecting on the skills he has learned and progress he has made. Shared utilizing these to create a coping plan for the day and that he will continue to reflect on how far he has come when struggling throughout the day. Discussed plans to get a meaningful tattoo this evening which is something he has been looking forward to for several months and believes this will aid in helping him cope with the triggering day. Appeared to benefit from supportive group environment and reflecting upon progress. Shared plans to continue working outpatient with his individual therapist as well as begin IOP aftercare tx. Pt to discharge from IOP tx given progress and will begin the IOP Aftercare program. Narrative Note: []
--- NOTE | 2021-07-15 11:05 | BH.SGPN.GN ---
Behaviors/Verbalizations/Mental Status: []Client alert and oriented, neatly dressed and groomed. Eye contact good. Motor activity appropriate. Speech within normal limits. Affect congruent, mood euthymic. Thoughts linear, logical, no signs of hallucinations or delusions. Client Response/Progress/Benefit: []Pt was engaged throughout AEB participating in discussion and taking notes. Pt reported the activity went well and pt felt confident in his ability to be successful. Contributed as group brainstormed healthy coping skills for better managing anger which included: deep breathing, counting, exercise, DDD, and looking at the consequences of responding in anger. Pt appeared to benefit from identifying different techniques to manage anger as well as gaining awareness of the costs of anger. Pt reported when their anger is unmanaged, pt shuts down, ruminates, and has racing thoughts. Pt selected using meditation and yoga to better manage anger. Will discharge from IOP tx today as pt has made progress and no longer meets criteria for IOP level of care. Narrative Note: []
--- NOTE | 2021-07-15 11:22 | BH.DS ---
Discharge Summary - Demographics Date of Admission:: 05/01/21 Discharge Date: 07/15/21 Presenting Problems at Admission:: Pt is a 41 year old male with hx of MDD. Hx of two admissions to psychiatric units between 01/2021 and 03/2021. Most recent admission was at [facility] from 04/15/21-04/21/21 for suicidal ideations with plan/intent. Pt reports that he was depressed and ruminating on his recent break-up which led to him driving to a local wooded area with a gun. I can't get over my ex. While in the amin he called his ex verbalizing plan to kill himself. I told him that he should get here and come alone. Ex ended up calling the [facility] who located him and took him to the ER for evaluation. Since discharge from psych unit he reports improve mood and decreased suicidal ideations. Endorses improved energy, motivation, and appetite. Poor sleep and crying spells. Ruminates often on loss of relationship. Has cut his hours back at work to part-time mainly due to his mental health. Medication compliant. Denies active suicidal ideations, plan, or intent. No hx of attempts. Denies substance abuse. Denies HI or psychosis. Primary support is friends. Bi-weekly counseling. Family hx of depression. Discharge Diagnoses:: MDD, recurrent, severe F33.2. MAJOR F41.1 Reason for Discharge:: Met all treatment plan goals. No longer meets criteria for IOP level of care. - Treatment Progress During Treatment & Response: Pt consistently attended IOP. He struggled at times with managing triggers, ruminating on past relationship, taking action on future, and consistent use of skills. In the past 8 weeks had several psychosocial stressors (lost business, fianc?s, holidays w/o ex, and unhealthy work environment) which became obstacles to progress. Pt self-reports progress in IOP. Encountered trigger (passed his ex while driving) this weekend and reports that he did not get overwhelmed. Was proud of himself and notes that this increases his confidence to manage future triggers. Today is a trigger as well (EX's b-day) and he has action plan for the day and reframed this day to be symbolic of his mental health progress ( discharging from IOP, getting an inspirational tattoo, etc). Utilizing skills and education learned. According to admission and discharge outcome scores pt had a 27% decrease in symptoms. Had a 50% decrease in the depression domain and a 25% decrease in anxiety domain. Current pt reports suicidal thought as occurring rarely in the past 2 weeks. Completed treatment plan goals. IOP was successful in preventing decompensation, increasing healthy coping, and improving functioning (pt is planning on starting new full-time job shortly). Issues Still to be Addressed:: Grief reaction, depression, anxiety, and psychosocial stressors. Discharge Recommendations/Instructions:: Pt has weekly appointments with his outpatient therapist Behzad Sorto. He is linked with psychiatry through the [facility] and has appointment in the beginning of July (could not recall the date). He has been in contact regularly with his [facility] psychiatrist during IOP as he preferred to see her rather than [facility] psychiatrist. He will also continue here at [facility] in our 10 week Aftercare group program. Discharge Handout: Complete Discharge Handout with client on aftercare options and continuity of care.
== END 2021-07-15 14:36 | disposition home or self-care (01) ==
LOC: BHIOP 07:29
PROVIDERS: PCP Family Medicine; Visit Provider Psychiatry & Neurology Psychiatry
DX: F33.2 Major depressive disorder, recurrent severe without psychotic features (principal); F41.1 Generalized anxiety disorder
CPT/HCPCS: S9480; 90832; 90834; 90853

== ENCOUNTER 2021-07-16 13:00 | Outpatient (RCR) | payer SELFPAY ==
--- NOTE | 2021-07-16 14:00 | BH.SGPN.GN ---
Behaviors/Verbalizations/Mental Status: Client alert and oriented, casually dressed and groomed. Eye contact good. Motor activity appropriate. Speech within normal limits. Affect congruent, mood euthymic. Thoughts linear, logical, no signs of hallucinations or delusions.[] Client Response/Progress/Benefit: []Client responded well to session AEB sharing and listening attentively to others. Client reported his emotion as ?upbeat?. Client discussed that his ex?s birthday was yesterday, which made him very anxious. Client reported preparing an action plan with his individual therapist to stave off increasing anxiety and prevent decompensation. Client stated that he also got his first tattoo yesterday, which gave him something to look forward to throughout the day. This is client?s first day of aftercare group. Client was attentive throughout group discussion, taking notes and nodding throughout. Group discussed gratitude and the importance of practicing both internal and external gratitude into your routine. Client completed a one-week gratitude challenge schedule, setting a goal to focus on internal gratitude by appreciating something he is passionate about, a happy memory, and something he enjoys about going to work. Appeared to benefit from increased knowledge of the internal and external gratitude in relation to mental health and increased self-awareness. Client to continue aftercare group to promote gains and reinforce healthy coping skills. Narrative Note: []
--- NOTE | 2021-07-16 15:03 | BH.MTP ---
Master Treatment Plan - Patient Information Program Physician:: Dr. Lore French Primary Therapist:: Patricio Garces [facility] - Psychiatric Diagnoses Psychiatric Diagnoses:: MDD, recurrent, severe F33.2. MAJOR F41.1 Diagnosis Code(s):: F33.2. F41.1 - Estimated LOS Estimated LOS (in weeks):: 12 Problem/Goal #1 - Problem/Goal #1 Stated Goal:: Client will maintain or see a reduction in symptoms AEB client score on the DSM 5 cross-cutting measure and improve client's daily functioning. - Objectives Objective #1 Stated Objective: Client will continue to consistently apply healthy coping skills to maintain progress made in IOP tx. Interventions: Through group therapy, client will review warning signs and triggers as well as healthy coping skills learned in IOP tx to successfully maintain gains while transitioning into outpatient therapy. Discharge Criteria: Client will have accomplished this goal when client's score on the DSM-5 cross-cutting measure has either maintained or reduced over a 12 week period. Target Date: 10/01/21 Review Date: 08/06/21 Objective #2 Stated Objective: Client will learn and utilize 2-3 maintenance strategies to prevent decompensation. Interventions: Through group therapy, client will be provided with education on healthy maintenance behaviors, relapse prevention techniques, and healthy coping strategies. Discharge Criteria: Client will have accomplished this goal when can report using at least 2 maintenance skills to prevent decompensation. Target Date: 10/01/21 Review Date: 08/06/21
== END 2021-07-20 23:59 ==
LOC: BHOG 13:00
PROVIDERS: PCP Family Medicine; Referring Provider Psychiatry & Neurology Psychiatry; Visit Provider Psychiatry & Neurology Psychiatry
DX: F33.2 Major depressive disorder, recurrent severe without psychotic features (principal); F41.1 Generalized anxiety disorder
CPT/HCPCS: 90853

== ENCOUNTER 2021-07-21 07:37 | Outpatient (RCR) | payer SELFPAY ==
--- NOTE | 2021-07-23 14:00 | BH.SGPN.GN ---
Behaviors/Verbalizations/Mental Status: []Client alert and oriented, casually dressed and groomed. Eye contact good. Motor activity appropriate. Speech within normal limits. Affect congruent, mood frustrated. Thoughts linear, logical, no signs of hallucinations or delusions. Client Response/Progress/Benefit: []Client responded well to session, sharing and listening attentively to others. Client reported his emotion as ?frustrated?. Client discussed that he was offered a job and decided not to take it, but does have a phone interview coming up. Client reported joining a [employer] club and utilizing opposite action to come to group today. Client participated in group discussion defining self compassion, reviewing the three little elements, and identifying what self compassion is not. Client completed exercise working through a past situation where they could have benefited from self compassion. Client identified not remembering a birthday, and applied self compassion to the situation, stating ?It wasn?t on purpose, you had the job offer going on, you called the next day instead of not forgiving yourself.? Appeared to benefit from increased knowledge of self compassion and increased self awareness. Will continue aftercare treatment to continue to promote gains and reinforce healthy coping skills. Narrative Note: []
--- NOTE | 2021-07-30 14:00 | BH.SGPN.GN ---
Behaviors/Verbalizations/Mental Status: []Client alert and oriented, neat and casually dressed and groomed. Eye contact fair to good. Motor activity appropriate. Speech within normal limits. Affect congruent, mood anxious and dysthymic. Thoughts linear, logical, no signs of hallucinations or delusions. Client Response/Progress/Benefit: Client responded well to session AEB providing input and listening attentively to peers. Reported feeling ?sad? today as client has been continuing to struggle with several work and interpersonal stressors. Shared he has been maintaining consistent appointments with outpatient providers and is actively using skills of opposite action, reminding himself ?it?s just a bad moment, not a bad day?, communicating his needs with himself, reflecting on positives, and regularly setting small daily goals to maintain the progress made while in [facility] tx. Client engaged in discussion on self-advocacy. Worked with group to identify the benefits of self-advocacy, as well as common barriers. Reviewed the personal bill of rights and shared belief that he does well to remind himself of his right to ?be angry at someone I love?. Worked with group to identify strategies to increase ability to advocate for oneself. Reported he wants to work on better advocating for himself by reminding himself that he has the right to ?determine my own priorities without need for explanation?. Noted plans to take steps in practicing this by challenging himself to take time to remind himself of his priorities and schedule time for them each day. Client seemed to benefit from reviewing treatment progress and skill application, as well as learning about how to increase self-advocacy. Client to continue aftercare to promote gains, prevent regression, and further improve functioning.[] Narrative Note: []
--- NOTE | 2021-08-06 02:00 | BH.SGPN.GN ---
Behaviors/Verbalizations/Mental Status: []Client alert and oriented, casually dressed and groomed. Eye contact good. Motor activity appropriate. Speech within normal limits. Affect congruent, mood euthymic. Thoughts linear, logical, no signs of hallucinations or delusions. Client Response/Progress/Benefit: []Client responded well to session AEB sharing and listening attentively to others. Client discussed taking action by setting small goals and working toward prioritizing his needs above the opinions of others. Client reported taking his medications consistently and having appointments with both his outpatient therapist and psychiatrist this week. Client participated in group discussion defining vulnerability, how and why we avoid it, and the benefits. Client was an active participant and provided personal examples of being vulnerable, including joining a new hiking club. Client discussed benefits of this, including meeting new people and getting out in nature. Client stated that he would like to practice vulnerability this week by talking with people at his next hiking club meeting. Will continue aftercare treatment to reinforce healthy coping skills and promote gains. Narrative Note: []
--- NOTE | 2021-08-13 14:00 | BH.SGPN.GN ---
Behaviors/Verbalizations/Mental Status: []Client alert and oriented, neatly dressed and groomed. Eye contact good. Motor activity appropriate. Speech within normal limits. Affect congruent, mood euthymic. Thoughts linear, logical, no signs of hallucinations or delusions. Client Response/Progress/Benefit: []Pt receptive of session, engaged throughout. Pt completed her aftercare self-reflection worksheet sharing he saw his therapist this week but not his psychiatrist, he is taking his medications, and he has been feeling very good despite stressors with his ex-boyfriend. Receptive of discussion on personal accountability and its importance in maintaining mental health stability. Pt worked cooperatively with group to identify benefits of maintaining personal accountability. Engaged in brainstorming strategies for improving ability to hold themselves accountable. Reported he wants to work on recognizing and challenging distortions to help pt hold himself more accountable. Pt seemed to benefit from support from peers and increasing understanding of personal accountability benefits and strategies. Will continue IOP aftercare group to maintain gains and prevent decompensation. Narrative Note: []
--- NOTE | 2021-08-13 15:01 | BH.MTP_ITS ---
Treatment Plan Review Date of Admission:: 07/16/21 Date of Treatment Plan Review:: 08/13/21 Admitting Diagnoses:: MDD, recurrent, severe F33.2. MAJOR F41.1 Current Diagnoses:: MDD, recurrent, severe F33.2. MAJOR F41.1 Patient's Response to Treatment:: Pt responding well to treatment AEB pt's consistent attendance, active engagement in group discussions, follow up with outpatient therapy and psychiatry, and reporting use of skills outside treatment environment. Status of Current Problems and Symptoms: Ongoing stressors include work-life balance, challenging negative self-talk, finding time for self-care, managing triggers, and continuing to build self-confidence and esteem. Pt also reports his anxiety is moderate right now, but his DSM-5 scores are still lower than at IOP discharge. Problem #1 Problem Name:: Pt will maintain or see a reduction in sx Status of Goals:: Obj 1 - Pt has been able to maintain gains made in IOP based on pt's additional reduction of symptoms on the DSM-5 by 8% since discharge. Based on pt's self-report, he reports improved mood, more positive self-talk, using skills more consistently, functioning well at work, and improved rel ationships. Obj 2 - complete with ongoing work encouraged. Client has been consistently reporting using self-talk, practicing self-reflection, challenging thoughts, and opposite action to cope. Pt also is improving with accepting the loss of his previous relationship and managing triggers when he sees his ex. Team Recommendations:: Recommended client continue IOP aftercare group in addition to attending regular outpatient counseling in order to maintain gains.
--- NOTE | 2021-08-20 14:00 | BH.SGPN.GN ---
Behaviors/Verbalizations/Mental Status: []Client alert and oriented, casually dressed and groomed. Eye contact good. Motor activity appropriate. Speech within normal limits. Affect congruent, mood euthymic. Thoughts linear, logical, no signs of hallucinations or delusions. Client Response/Progress/Benefit: []Client responded well to session AEB sharing and listening attentively to others. Client reported using self care, thought challenging, and boundary setting this week to improve work-life balance. Reported scheduled appointments with his outpatient individual therapist on Tuesday and with his psychiatrist next month. Client reports taking his medications regularly. Client participated in group discussion of healthy decision making, including what goes into making a healthy decision and what keeps us from making them. Client participated in experiential small group activity and processing. Client identified finances and physical self care as areas in life he would like to make healthier decisions. Client?s goal to work toward making healthier decisions this week is to review his long-term financial goals and set small goals to work toward them. Appeared to benefit from increased knowledge of healthy decision making and increased self-awareness of areas in need of growth. Will continue aftercare treatment to reinforce boundary setting and promote gains. Narrative Note: []
== END 2021-08-20 23:59 ==
LOC: BHOG 07:37
PROVIDERS: PCP Family Medicine; Referring Provider Psychiatry & Neurology Psychiatry; Visit Provider Psychiatry & Neurology Psychiatry
DX: F33.2 Major depressive disorder, recurrent severe without psychotic features (principal); F41.1 Generalized anxiety disorder
CPT/HCPCS: 90853

== ENCOUNTER 2021-08-21 10:29 | Outpatient (RCR) | payer SELFPAY ==
--- NOTE | 2021-08-27 02:00 | BH.SGPN.GN ---
Behaviors/Verbalizations/Mental Status: []Client alert and oriented, casually dressed and groomed. Eye contact good. Motor activity appropriate. Speech within normal limits. Affect congruent, mood euthymic. Thoughts linear, logical, no signs of hallucinations or delusions. Client Response/Progress/Benefit: []Client responded well to session AEB sharing and listening attentively to others. Client reported using opposite action and thought challenging this week to work through a personal trigger, which he stated would have caused a mental health crisis in the past. Client reports having appointments scheduled with his outpatient individual therapist and psychiatrist in the next two weeks, and is taking his medications consistently. Client reported working on goals set at previous session, making healthy decisions by eating more consistently and working on his budget. Client participated in group discussion defining affirmations and why they are important. Provided insight throughout clinician?s presentation of tips for writing personal affirmations. Client wrote his own affirmations, including ?I am resilient enough to navigate setbacks and find empowerment in those moments?. Client appeared to benefit from increased knowledge of affirmation writing and increased self-awareness. Will continue aftercare treatment to reinforce healthy coping skills and promote gains. Narrative Note: []
--- NOTE | 2021-09-03 14:00 | BH.SGPN.GN ---
Behaviors/Verbalizations/Mental Status: []Client alert and oriented, casually dressed and groomed. Eye contact good. Motor activity appropriate. Speech within normal limits. Affect congruent, mood euthymic. Thoughts linear, logical, no signs of hallucinations or delusions. Client Response/Progress/Benefit: [] Pt responded well to session, engaged and remaining attentive and willing to participate in discussion throughout. Pt reported he hasn't seen his outpatient therapist in 3 weeks because of various scheduling conflicts. Stated needs to make this a priority to schedule out several weeks of weekly appointments. Reported sees psychiatrist next week. Pt reported he corrected mental filter thoughts to not let some bad work moments outweigh good moments. Additional skills used to manage stressors was being aware of current perspective, breathing skills, and reminding self to take a break when needed. Pt reports connecting with the topic of routine and structure and it?s importance in ongoing mental health maintenance. Pt engaged in brainstorming of various daily routine ideas. Pt elicited help from therapist on creating his routine. Stated he will work on creating a daily structure/routine for each day based on if he is working that day or not. Pt seemed to benefit from support from peers and learning about benefits of routine. Pt to continue aftercare group to promote ongoing use of healthy coping, continue to use open communication, and prevent decompensation.
--- NOTE | 2021-09-17 15:32 | BH.MTP_ITS ---
Treatment Plan Review Date of Admission:: 07/16/21 Date of Treatment Plan Review:: 09/17/21 Admitting Diagnoses:: MDD, recurrent, severe F33.2. MAJOR F41.1 Current Diagnoses:: MDD, recurrent, severe F33.2. MAJOR F41.1 Patient's Response to Treatment:: Pt responding well to treatment AEB pt's consistent attendance, active engagement in group discussions, follow up with outpatient therapy and psychiatry, and reporting use of skills outside treatment environment. Status of Current Problems and Symptoms: Ongoing stressors include work-life balance, challenging negative self-talk, finding time for self-care, and continuing to build self-confidence and esteem. Problem #1 Problem Name:: Pt will maintain or see a reduction in sx Status of Goals:: Obj 1 - Pt has been able to maintain gains made in IOP based on pt's additional reduction of 44% in overall symptoms on the DSM-5. Based on pt's self-report, he reports improved mood, more positive self-talk, using skil ls more consistently, functioning well at work, and improved relationships. Obj 2 - complete with ongoing work encouraged. Client has been consistently reporting using self-talk, practicing self-reflection, challenging thoughts, and opposite action to cope. Team Recommendations:: Recommended client continue IOP aftercare group in addition to attending regular outpatient counseling in order to maintain gains.
--- NOTE | 2021-09-18 14:00 | BH.SGPN.GN ---
Behaviors/Verbalizations/Mental Status: []Client alert and oriented, casually dressed. Eye contact good. Motor activity appropriate. Speech within normal limits. Affect congruent, mood euthymic. Thoughts linear, logical, no signs of hallucinations or delusions. Client Response/Progress/Benefit: []Pt responded well to session AEB pt providing input during discussion and listening attentively to peers. Pt shared he met with his therapist this week and is scheduled to meet every 2 weeks. Pt reported he set boundaries with his boss at work by telling his boss not to talk disrespectfully to him. Pt reported he also has been taking time to gather information about different career options that would be healthier for him. Pt engaged in discussion about self-love. Pt worked with group to identify strategies to increase self-love. Pt stated wanting to work on self-love by starting to work through his past traumas. Pt seemed to benefit from reviewing treatment progress and stressors as well as learning about how to increase self-love. Pt to continue aftercare group to promote ongoing use of healthy coping, continue to use open communication, and prevent decompensation.
== END 2021-09-19 23:59 ==
LOC: BHOG 10:29
PROVIDERS: PCP Family Medicine; Referring Provider Psychiatry & Neurology Psychiatry; Visit Provider Psychiatry & Neurology Psychiatry
DX: F33.2 Major depressive disorder, recurrent severe without psychotic features (principal); F41.1 Generalized anxiety disorder
CPT/HCPCS: 90853

== ENCOUNTER 2021-09-21 08:33 | Outpatient (RCR) | payer SELFPAY ==
--- NOTE | 2021-09-24 14:00 | BH.SGPN.GN ---
Behaviors/Verbalizations/Mental Status: []Client alert and oriented, casual in appearance. Eye contact good. Motor activity appropriate. Speech within normal limits. Affect congruent. Mood euthymic. Thoughts linear, logical, no signs of hallucinations or delusions Client Response/Progress/Benefit: []Pt responded well to session AEB pt openly sharing thoughts and feelings and completing worksheet. Pt completed the self-reflection sheet stating they have been taking medications consistently, but they did not have a counseling or psychiatry appointment this week. Pt also reports using coping skills such as making sure he finding a balance, reinforcing boundaries at work, and practicing flexible thinking. Pt responded well to group discussion and review about self-care. Pt stated they will work on following self-care activities: making sure to eat lunch, hiking, yoga, and doing the not fun stuff like cleaning. Pt seemed to benefit from support from peers and identifying self-care plan. Pt will continue IOP aftercare to promote gains and further increase mood stability. Narrative Note: []
--- NOTE | 2021-10-08 14:00 | BH.SGPN.GN ---
Behaviors/Verbalizations/Mental Status: []Pt alert and oriented, neatly dressed and groomed. Eye contact good. Motor activity appropriate. Speech within normal limits. Affect congruent, mood euthymic. Thoughts linear, logical, no signs of hallucinations or delusions. Client Response/Progress/Benefit: []Pt responded well to session, actively contributing. Pt checked in using the self-reflection worksheet. Pt did not have a counseling or psychiatry appointment this week, but he has a counseling appointment next week. Pt has been taking medication as prescribed and has been using thought challenging, self-talk, giving self credit, and checking in with self. Pt contributed to the discussion on gratitude and its benefits. Pt attentive during discussion of internal vs. external gratitude. Pt receptive to participating in the group seven-day gratitude challenge. Pt selected one gratitude reflection per day and stated to hold himself accountable, pt had it laminated at [facility] and he will hang it on his fridge. Appeared to benefit from connecting with peers and practicing gratitude. Will continue IOP tx promote mood stability and reinforce healthy coping skills. Narrative Note: []
--- NOTE | 2021-10-08 15:47 | BH.DS_ITS ---
Discharge Summary - Demographics Date of Admission:: 07/16/21 Discharge Date: 10/08/21 Presenting Problems at Admission:: Pt discharged from IOP tx and transitioned to IOP aftercare to maintain gains Pt made in IOP and to reinforce healthy coping skills. At admission to IOP aftercare, pt continued to report symptoms of depression including feeling hopelessness and anhedonia. Pt also reported still experiencing anxiety and struggling with knowing who he was/what he wanted out of life. 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 Discharge Diagnoses:: MDD, recurrent, severe F33.2. MAJOR F41.1 Reason for Discharge:: Pt has accomplished tx goals AEB ability to maintain mood stability and gains made in IOP. Pt's DSM-5 scores decreased by an additional 63% post IOP discharge. Pt will transition to traditional outpatient counseling. - Treatment Progress During Treatment & Response: Pt responded well and made progress in IOP aftercare as evidenced by pt's participation in group discussions and self- report of consistently applying coping skills. Pt's overall DSM-5 scores decreased by 63% more after completing aftercare. Pt?s depression decreased by 83%, anxiety decreased by an additional 83%, and anger decreased by 50% since IOP discharge. Additionally, at discharge Pt was reporting an improved mood, more positive thinking patterns, consistent use of healthy coping skills, and increased self-care. Issues Still to be Addressed:: Healthy relationships, self-care maintenance, self-compassion, work-life balance, and positive self-talk. Discharge Recommendations/Instructions:: Pt has bi-weekly appointments with his outpatient therapist Behzad Sorto. Pt also will continue with [facility] for psychiatric services. Discharge Handout: Complete Discharge Handout with client on aftercare options and continuity of care.
== END 2021-10-08 15:46 | disposition home or self-care (01) ==
LOC: BHOG 08:33
PROVIDERS: PCP Family Medicine; Referring Provider Psychiatry & Neurology Psychiatry; Visit Provider Psychiatry & Neurology Psychiatry
DX: F33.2 Major depressive disorder, recurrent severe without psychotic features (principal); F41.1 Generalized anxiety disorder; Z79.899 Other long term (current) drug therapy
CPT/HCPCS: 90853